=== PATIENT | female | born 1950 | race Caucasian/White ===

== ENCOUNTER 2019-03-29 11:52 | Outpatient (CLI) | payer MEDICARE, SELFPAY ==
--- NOTE | ~2019-03-29 | XR_ITS ---
XR foot LT standing 2V 03/29/2019 12:58 Indication: Left foot pain Procedure: 2 views Comparison: No prior studies for comparison. Findings: There are degenerative changes of the first MTP and IP joints. There is a bone island at th e tuft of the first distal phalanx. Lisfranc joint intact. No acute fracture or traumatic malalignmen t. No focal soft tissue abnormality. No radiopaque foreign bodies. Impression: 1: Mild polyarticular osteoarthritis. Reviewed, dictated and finalized at location A. PING MACHINE TENDER Impression: 1: Mild polyarticular osteoarthritis.
--- NOTE | ~2019-03-29 | XR_ITS ---
XR lumbar spine min 4V 03/29/2019 12:58 Indication: Back pain Procedure: 5 views of the lumbar spine Comparison: No prior studies for comparison. Findings: There is dextroscoliosis centered at L3. There is significant disc narrowing and endplate d egenerative change at all lumbar levels. Sacral foramen are symmetric. No acute fracture or traumatic malalignment. No evidence for spondylolisthesis. Impression: 1: Severe lumbar spondylosis with dextroscoliosis. Reviewed, dictated and finalized at location A. OSOFT DEVELOPER Impression: 1: Severe lumbar spondylosis with dextroscoliosis.
--- NOTE | ~2019-03-29 | XR_ITS ---
XR sacroiliac joints min 3V 03/29/2019 12:58 Indication: Sacroiliac joint pain. Procedure: 3 views of the sacroiliac joints Comparison: 02/25/2010 Findings: There is bilateral symmetric sclerosis of the iliac aspect of both sacroiliac joints. No ev idence for erosive change or ankylosis. Sacral foramen are symmetric. Visualized pelvic structures ar e unremarkable. Impression: 1: Mild-moderate bilateral symmetric degenerative change of the sacroiliac joints. Reviewed, dictated and finalized at location A. LTY MAKER Impression: 1: Mild-moderate bilateral symmetric degenerative change of the sacroiliac join ts.
--- NOTE | ~2019-03-29 | XR_ITS ---
XR foot RT standing 2V 03/29/2019 12:58 Indication: Right foot pain Procedure: 2 views right foot Comparison: No prior studies for comparison. Findings: There is internal fixation of the right first MTP joint with dorsal side plate and screws. The side plate is fractured overlying the MTP joint. There is a fractured screw obliquely oriented th rough the MTP joint. There is severe osteoarthritis of the first MTP joint. Lisfranc joint intact. No acute fracture or traumatic malalignment. Impression: 1: Status post internal fixation of the right first MTP joint with fractured sideplate and screw. 2: Severe osteoarthritis of the first MTP joint. Reviewed, dictated and finalized at location A. E PAVER Impression: 1: Status post internal fixation of the right first MTP joint with fractured si deplate and screw. 2: Severe osteoarthritis of the first MTP joint.
[2019-03-29 14:22] LABS: Uric Acid 4.2 mg/dL (2.5-7.5)
[2019-03-31 04:54] LABS: Angiotensin Converting Enzyme 22 U/L (9-67)
[2019-03-31 12:48] LABS: HLA B27 Negative (Negative)
[2019-03-31 21:32] LABS: Anti Cyclic Citrullinated Pept <16 Units (<20)
== END 2019-03-29 11:53 | disposition home or self-care (01) ==
PROVIDERS: PCP Family Medicine; Visit Provider Internal Medicine
DX: M25.9 Joint disorder, unspecified (principal); M19.071 Primary osteoarthritis, right ankle and foot; M19.072 Primary osteoarthritis, left ankle and foot; M47.898 Other spondylosis, sacral and sacrococcygeal region; M47.816 Spondylosis without myelopathy or radiculopathy, lumbar region; M41.86 Other forms of scoliosis, lumbar region; Z98.890 Other specified postprocedural states
CPT/HCPCS: 36415; 72110; 72202; 73620; 82164; 84550; 86200; 86812

== ENCOUNTER → 2019-10-07 12:29 | Outpatient (CLI) | payer MEDICARE, SELFPAY ==
--- NOTE | ~2019-10-07 | MM_ITS ---
EXAMINATION: MM screening [facility] BI w louise HISTORY: Screening mammogram, family history of breast cancer in her sister. TECHNIQUE: Craniocaudal and mediolateral oblique 3-D tomosynthesis images were obtained and synthetic 2-D images were generated. CAD analysis was submitted and interpreted. COMPARISON: 07/16/2018, 06/29/1917, 06/14/2016, 06/02/2015 BREAST PARENCHYMAL COMPOSITION: There are scattered areas of fibroglandular density. FINDINGS: There are stable grouped calcifications in association with a focal asymmetry in the upper outer quadrant of the left breast. Stable architectural distortion is seen in both breasts related to prior excisional biopsy. There is no evidence of suspicious mass, calcification, or architectural di stortion to suggest malignancy in either breast. There has been no suspicious interval change. IMPRESSION: 1. No mammographic evidence of malignancy. 2. Recommend routine screening mammography in one year. BI-RADS Category 2: Benign finding(s). Reviewed, dictated and finalized at location A.
== END ==
PROVIDERS: PCP Family Medicine; Visit Provider Nurse Practitioner
DX: Z12.31 Encounter for screening mammogram for malignant neoplasm of breast (principal)
CPT/HCPCS: 77063; 77067

== ENCOUNTER 2020-06-28 13:42 | Outpatient (CLI) | payer MEDICARE, SELFPAY ==
[2020-06-28 16:03] LABS: Thyroid Stimulating Hormone 0.609 uIU/mL (0.465-4.680); Total Triiodothyronine (T3) 1.79 NG/ML (0.97-1.69)
[2020-06-28 16:43] LABS: Free T4 Free Thyroxine 1.47 ng/mL (0.78-2.19)
--- NOTE | 2020-07-01 12:26 | WPDPFTINT ---
PFT Procedure Performed PFT Procedure Performed Spirometry with Pre/Post Bronchodilator Plethysmography (Lung Vol) Diffusing Cap (DLCO) Flow Vol Loop PFT Interpretation This PFT met all criteria for ATS standards and reproducibility FEV/FVC post bronchodilator 65% FEV1 80% FVC 95% TLC 105% RV 125% RV/TLC 51% DLCO 89% when adjusted for alveolar volume but not adjusted for hemoglobin Flow volume loops showed significant expiratory coving Impression: mild to moderate airflow obstruction with air trapping. This pattern may suggest either COPD or asthma. Clinical correlation is advised.
== END 2020-06-28 13:43 | disposition home or self-care (01) ==
PROVIDERS: PCP Family Medicine; Referring Provider Internal Medicine Endocrinology, Diabetes & Metabolism; Visit Provider Family Medicine
DX: E05.90 Thyrotoxicosis, unspecified without thyrotoxic crisis or storm (principal); J45.909 Unspecified asthma, uncomplicated
CPT/HCPCS: 36415; 84439; 84443; 84480; 94060; 94726; 94729

== ENCOUNTER 2020-07-18 05:52 | Inpatient (IN) | payer MEDICARE, SELFPAY ==
[2020-07-18] VITALS (26 sets, daily range): BP systolic 111–150; BP diastolic 52–87; PULSE 52–80; RESP 14–20; TEMP 35.8–36.6; O2SAT 95–100; BMI 32.8
--- NOTE | 2020-07-18 | ECHO_ITS ---
Patient Info Name: Alee Carcamo Age: 70 years : 1950 Gender: Female Ht: 63 in Wt: 189 lbs BSA: 1.99 m2 HR: 81 bpm Heart Rhythm: Sinus Rhythm Exam Date: 07/18/2020 11:40 AM Exam Location: [facility] Patient Status: Outpatient Admit Date: 07/18/2020 Staff Ordering Physician: Monico Gaytan DO Studio Associate: BLAS Attending Provider: Leila Gutierrez MD Exam Type: CA echo doppler color flow Study Info Indications R07.89 - Other chest pain Complete two-dimensional, color flow and Doppler transthoracic echocardiogram is performed. Summary 1. Complete two-dimensional, color flow and Doppler transthoracic echocardiogram is performed. 2. Left ventricular chamber dimension is normal. 3. Left ventricular systolic function is normal, estimated at 60-65%. 4. The left ventricular diastolic function is grade I diastolic dysfunction. 5. E/e' 11 is mildly elevated. 6. Left atrial chamber dimension is mildly enlarged. 7. The mitral valve has mildly calcified annulus. 8. No pulmonary hypertension, estimated pulmonary arterial systolic pressure is 20 mmHg. Left Ventricle E/e' 11 is mildly elevated. Left ventricular chamber dimension is normal. Left ventricular systolic function is normal, estimated at 60-65%. The left ventricular diastolic function is grade I diastolic dysfunction. Right Ventricle Right ventricular chamber dimension is normal. Right ventricular systolic function is normal. Left Atria Left atrial chamber dimension is mildly enlarged. Right Atria Right atrial chamber dimension is normal. Aortic Valve The aortic valve is trileaflet. There is no aortic valve stenosis. There is no aortic valve regurgitation. Pulmonic Valve There is no pulmonic regurgitation. Mitral Valve The mitral valve has mildly calcified annulus. There is no mitral valve stenosis. There is no mitral valve regurgitation. Tricuspid Valve There is no tricuspid valve regurgitation. No pulmonary hypertension, estimated pulmonary arterial systolic pressure is 20 mmHg. Pericardium/Pleural There is no pericardial effusion. Inferior Vena Cava Normal inferior vena cava with >50% collapse upon inspiration consistent with normal right atrial pressure, 5 mmHg. Aorta The aortic root size at the sinus of Valsalva is normal. Left Ventricular Outflow Tract Name Value Normal LVOT 2D LVOT Diameter 2.0 cm LVOT Doppler LVOT Peak Gradient 6 mmHg LVOT Mean Gradient 3 mmHg LVOT VTI 32 cm LVOT VTI/AV VTI Ratio 0.7 LVOT Stroke Volume 97 ml LVOT CO 15.7 l/min LVOT CI 7.9 l/min/m2 Pulmonic Valve Name Value Normal PV Doppler PV Peak Gradient
--- NOTE | ~2020-07-18 | NM_ITS ---
EXAMINATION: NM isaura stress w perfusion DATE: 07/20/2020 13:56 INDICATION: Chest pain. TECHNIQUE: Rest images were obtained following intravenous administration of 9.3 mCi Tc99m tetrofosmi n (Myoview). The patient was infused intravenously with Lexiscan (regadenoson). Then, 30.1 mCi Tc99m tetrofosmin (Myoview) was administered intravenously, and stress images were obtained. Data was recon structed into short axis and horizontal and vertical long axis SPECT images. Gated SPECT images were also obtained. COMPARISON: Chest CT 07/19/2020 FINDINGS: There is a small, mild, fixed perfusion defect involving mid inferior and mid inferoseptal segments of left ventricle, consistent with infarct. No reversible component to suggest ischemia. Th ere is no segmental wall motion abnormality. Left ventricular ejection fraction measures >70%. IMPRESSION: 1. Small area of mild infarct involving mid inferior and mid inferoseptal segments of left ventricle. 2. Normal left ventricular ejection fraction measuring >70%. Reviewed, dictated and finalized at location A. IMPRESSION: 1. Small area of mild infarct involving mid inferior and mid inferoseptal segme nts of left ventricle. 2. Normal left ventricular ejection fraction measuring >70%.
--- NOTE | ~2020-07-18 | XR_ITS ---
EXAMINATION: XR chest 2V EXAM DATE: 07/18/2020 06:19 INDICATION: Left-sided chest pain for 2 days. TECHNIQUE: Frontal and lateral projections of the chest obtained and reviewed. Comparison is made to prior examination from 10/21/2018. FINDINGS: The lungs are clear. There are no pleural effusions. The cardiomediastinal silhouette is within normal limits. There is no pneumothorax suspected. The bones and soft tissues are unremarkab le. There is no significant interval change. IMPRESSION: No acute cardiopulmonary findings. Reviewed, dictated and finalized at location A.
--- NOTE | ~2020-07-18 | CT_ITS ---
EXAMINATION: CTA chest PE protocol DATE: 07/19/2020 09:28 INDICATION: Left chest pain. TECHNIQUE: Computed tomography angiography (CTA) of the chest was performed with 100 mL Omnipaque-350 intravenous contrast timed to evaluate the pulmonary arteries. Coronal maximum intensity projection 3D-reconstructions were created by the technologist. Automated exposure control and iterative reconst ruction technique were employed. The dose-length product was 506.29 mGy-cm. COMPARISON: CT abdomen and pelvis 01/20/2012 FINDINGS: The lungs demonstrate mild atelectasis on the right. No pleural effusion. The heart size is normal. No pericardial effusion. There is no pulmonary embolus. There is moderate thoracic spondylos is. IMPRESSION: 1. No pulmonary embolus. Reviewed, dictated and finalized at location A. IMPRESSION: 1. No pulmonary embolus.
--- NOTE | ~2020-07-18 | XR_ITS ---
EXAMINATION: XR ribs LT 2V DATE: 07/19/2020 15:47 INDICATION: Left rib pain. TECHNIQUE: 3 views of left ribs were obtained. COMPARISON: Chest 2 views 07/18/2020 FINDINGS: There is no left-sided pneumonia, pleural effusion, or pneumothorax. The heart size is norm al. There is a surgical clip in left breast. IMPRESSION: 1. No rib fracture. Reviewed, dictated and finalized at location A. IMPRESSION: 1. No rib fracture.
--- NOTE | ~2020-07-18 | US_ITS ---
US abdomen limited INDICATION: Epigastric pain PROCEDURE: Realtime right upper abdominal ultrasound. COMPARISON: No prior studies for comparison. FINDINGS: The pancreas is normal without focal mass or pancreatic ductal dilation. Liver echotexture is normal without focal mass or intrahepatic biliary dilatation. There is normal directional flow i n the portal vein. The gallbladder is normal without stones, gallbladder wall thickening or pericholecystic fluid. Comm on bile duct measures 4.5 mm. No sonographic Reddy's sign. IMPRESSION: 1: Normal limited abdominal ultrasound. Reviewed, dictated and finalized at location B.
--- NOTE | 2020-07-18 05:53 | ECG_ITS ---
Measurements Intervals [facility] Rate: 70 P: 63 NV: 179 QRS: -71 QRSD: 136 T: 35 QT: 429 QTc: 466 Interpretive Statements SINUS RHYTHM LEFT AXIS DEVIATION RIGHT BUNDLE BRANCH BLOCK BASELINE ARTIFACT- III, AVF, V1-V6 ABNORMAL ECG Electronically Signed On 07-18-2020 7:12:38 CDT by Monico Gaytan D.O.
[2020-07-18 06:14] LABS: Basophils Percent Auto 0.4 % (0.2-1.2); Eosinophils Absolute Auto 0.1 K/mm3 (0-0.3); Eosinophils Percent Auto 0.9 % (0-4.4); Hematocrit 40.3 % (37.0-47.0); Hemoglobin 13.1 g/dL (12.0-15.0); Immature Granulocyte Absolute 0.02 K/mm3 (0.00-0.031); Immature Granulocyte Percent A 0.3 % (0-0.5); Lymphocytes Percent Auto 20.4 % (18.3-44.2); Mean Corpuscular HGB Conc 32.5 g/dl (32-36); Mean Corpuscular Hemoglobin 30.5 pg (26-34); Mean Corpuscular Volume 93.7 fl (80-100); Mean Platelet Volume 9.5 fl (7.4-10.4); Monocytes Absolute Auto 0.8 K/mm3 (0.1-0.6); Monocytes Percent Auto 10.4 % (2.6-8.5); Neutrophils Absolute Auto 5.3 K/mm3 (1.3-6.7); Neutrophils Percent Auto 67.6 % (45.5-73.1); Platelet Count Result 320 k/mm3 (150-375); Red Cell Distribution Width 14.2 % (11.5-14.5); White Blood Count 7.9 K/mm3 (4.5-10.0)
[2020-07-18] MEDS: NITROGLYCERIN SL 0.4 MG TABLET SUBLINGUAL (06:25)
[2020-07-18] MEDS: SODIUM CHLORIDE 0.9% IV 1,000 ML 999 ML IV CONT (06:25)
--- NOTE | 2020-07-18 06:25 | ED.CHESTPAIN ---
HPI - Chest Pain General Chief Complaint: Chest Pain <Aaron Boyce MD - Last Filed: 07/18/20 06:34> Stated Complaint: chest pain x 2 days <Aaron Boyce MD - Last Filed: 07/18/20 06:34> Time Seen by Provider: 07/18/20 06:02 <Aaron Boyce MD - Last Filed: 07/18/20 06:34> Source: patient and family <Aaron Boyce MD - Last Filed: 07/18/20 06:34> Mode of arrival: ambulatory <Aaron Boyce MD - Last Filed: 07/18/20 06:34> Limitations: no limitations <Aaron Boyce MD - Last Filed: 07/18/20 06:34> History of Present Illness HPI narrative: 70-year-old with a history of hypertension, hyperlipidemia, hypothyroidism, Takotsubo cardiomyopathy here with complaints of left-sided chest pain for past 2 days. Patient states that pain is below her left breast and it is constant in nature. Pain gets worse with ambulation. She states that she has taken Tylenol yesterday <Aaron Boyce MD - Last Filed: 07/18/20 06:34> MD complaint: chest pain <Aaron Boyce MD - Last Filed: 07/18/20 06:34> Pertinent past history: other (Takotsubo cardiomyopathy) <Aaron Boyce MD - Last Filed: 07/18/20 06:34> Onset (ago): day(s) (2) <Aaron Boyce MD - Last Filed: 07/18/20 06:34> Timing of current episode: constant <Aaron Boyce MD - Last Filed: 07/18/20 06:34> Onset: during rest <Aaron Boyce MD - Last Filed: 07/18/20 06:34> Pain location: left chest <Aaron Boyce MD - Last Filed: 07/18/20 06:34> Pain radiation: none <MD Raya Luque Last Filed: 07/18/20 06:34> Quality: aching and heaviness <Aaron Boyce MD - Last Filed: 06/08/21 06:34> Relieving factors: nothing <MD Raya Luque Last Filed: 07/18/20 06:34> Exacerbating factors: exertion <MD Raya Luque Last Filed: 07/18/20 06:34> Associated symptoms: nausea <MD Raya Luque Last Filed: 07/18/20 06:34> Risk Factors Coronary artery disease risk factors: hyperlipidemia and hypertension <MD Raya Luque Last Filed: 07/18/20 06:34> Related Data Home Medications: Home Medications Medication Instructions Recorded Confirmed lactobacillus combination no.4 15 15,000 mmu cells PO DAILY 01/27/19 06/07/20 billion cell capsule cholecalciferol (vitamin D3) 50 3,000 unit PO DAILY tablet 03/08/20 06/07/20 mcg (2,000 unit) chewable tablet <MD Raya Luque Last Filed: 07/18/20 06:34> Allergies/Adverse Reactions: Allergies Allergy/AdvReac Type Severity Reaction Status Date / Time codeine Allergy Unknown Itching Verified 07/18/20 05:52 Sulfa (Sulfonamide Allergy Unknown Itching Verified 07/18/20 05:52 Antibiotics) <MD Raya Luque Last Filed: 07/18/20 06:34> Review of Systems Review of Systems: All systems reviewed & are unremarkable except as noted in HPI and below <MD Raya Luque Last Filed: 07/18/20 06:34> Constitutional: Constitutional: Reports no additional constitutional complaints <MD Raya Luque Last Filed: 07/18/20 06:34> Eyes: Eyes: Reports no additional eye complaints <MD Raya Luque Last Filed: 07/18/20 06:34> ENT: Reports system reviewed and no additional complaints, except as documented <MD Raya Luque Last Filed: 07/18/20 06:34> Cardiovascular: Cardiovascular: Reports as per HPI <MD Raya Luque Last Filed: 07/18/20 06:34> Respiratory: Respiratory: Reports no additional respiratory complaints <MD Raya Luque Last Filed: 07/18/20 06:34> Gastrointestinal: Gastrointestinal: Reports no additional gastrointestinal complaints <MD Raya Luque Last Filed: 07/18/20 06:34> Musculoskeletal: Musculoskeletal: Reports no additional musculoskeletal complaints <Aaron Boyce MD - Last Filed: 07/18/20 06:34> Neurologic: Reports system reviewed and no additional complaints, except as documented <Aaron Boyce MD - Last Filed: 07/18/20 06:34
[2020-07-18] MEDS: ASPIRIN 81 MG CHEWABLE TABLET 324 MG PO (06:26)
[2020-07-18 06:27] LABS: Prothrombin Time 13.6 Seconds (11.1-14.7)
[2020-07-18 06:52] LABS: Anion Gap 13 mmol/L (8-16); Blood Urea Nitrogen 14 mg/dL (7-17); Calcium 9.9 mg/dL (8.4-10.2); Carbon Dioxide 26 mmol/L (22-30); Chloride 102 mmol/L (98-107); Estimated CRCL calculation 60 ml/min; Estimated Glomerular Filt Rate > 60; Glucose 116 mg/dL (65-105); Potassium 3.6 mmol/L (3.4-5.0); Sodium 141 mmol/L (137-145)
[2020-07-18] MEDS: ONDANSETRON INJ 4 MG/2 ML VIAL IV PUSH (06:56)
[2020-07-18] MEDS: MORPHINE SULFATE (*CRX) 4 MG/ML INJ IV PUSH ×2 (06:56→15:04)
[2020-07-18 07:08] LABS: Troponin I 0.056 ng/mL (0.000-0.034)
--- NOTE | 2020-07-18 09:03 | PM.CNCAR ---
Assessment and Plan Assessment and plan (1) Chest pain: Qualifiers: Chest pain type: chest pain due to myocardial ischemia Ischemic chest pain type: unspecified angina pectoris type Qualified Code(s): I25.9 - Chronic ischemic heart disease, unspecified Code(s): R07.9 - Chest pain, unspecified Status: Acute Assessment and Plan: Atypical. Given essentially normal LHC in 2019 doubt this is ACS. Could be related to musculoskeletal or radiculopathy from her cervicals. Obtain echo. Follow serial troponins. (2) Essential hypertension: Code(s): I10 - Essential (primary) hypertension Status: Acute Assessment and Plan: Stable. (3) Dyslipidemia: Code(s): E78.5 - Hyperlipidemia, unspecified Status: Acute Assessment and Plan: On Statin. (4) Takotsubo cardiomyopathy: Code(s): I51.81 - Takotsubo syndrome Status: Acute History of Present Illness History of Present Illness Consult date/time: 07/18/20 09:03 Reason for consult: Chest pain. Patient is a 70 yr old woman who is my regular cardiology patient presents to ED with chest pain. She has a history of Takotsubo cardiomyopathy in Oct 2018, dyslipidemia, hypertension, asthma. States that she had queasiness and vague abdominal pain in last several days. She went to see her PCP, Dr. Chavarria and was scheduled to have abdominal ultrasound for it. She also sees a solar energy system installer and was started on Methotrexate for psoriatic arthritis, but she did not take it this week due to concern for abdominal discomfort. Then for last 36 hours she has constant 10/10 sharp pain in left chest under her breast radiating to her back. She did get Morphine in ED which took the edge off and she only notices the pain now. EKG is OK. CXR is OK. Troponin is .056 first set. Reports she does not walk much but thinks she can walk a few blocks without any problems. Denies chest pain, sob, edema, palpitations, orthopnea. Cardiovascular Procedures On Site Soil Evaluator:: Cath (Dr. Guerrero: Luminal irregularities only of RCA. EF 35%.) - 10/22/2018 Echo/MUGA:: 01/11/19 Echo: EF 60-65%, mild LVH, trace MR/TR/PI. Echo (EF 35-40%, mod LVE, basal to mid LV segments with normal contractility, while mid to apical and entire apex are severe hypokinetic to akinetic s/o Takotsubo cardiomyopathy, grade I diastolic dysfunction (E/E' 16), mild LAE, mild AI/MR/TR.) - 10/21/2018 Electrophysiology:: EKG (Sinus rhythm, RBBB, LAFB.) - 10/21/2018 Reason For Visit: chest pain x 2 days Review of Systems Review of Systems: All systems reviewed & are unremarkable except as noted in HPI and below Constitutional: Constitutional: Reports as per HPI, Denies chills and Denies fever(s) Cardiovascular: Cardiovascular: Reports as per HPI, Reports chest pain, Denies leg edema and Denies lightheadedness Respiratory: Respiratory: Reports as per HPI and Denies dyspnea Gastrointestinal: Gastrointestinal: Reports as per HPI and Reports abdominal pain Genitourinary: Genitourinary: Reports as per HPI and Denies dysuria Musculoskeletal: Musculoskeletal: Reports as per HPI, Reports back pain, Reports arthralgias and Reports neck pain Neurologic: Reports as per HPI, Denies dizziness and Denies syncope [facility] Past Medical History Medical History Arthritis Asthma Cataract fragments in both eyes following surgery Colitis Dyslipidemia Essential hypertension Inflammatory arthritis Migraine Mild intermittent asthma with (acute) exacerbation Neck pain Peripheral polyneuropathy Primary osteoarthritis, right shoulder (~2014) Psoriasis (~1999) Takotsubo cardiomyopathy Thyroid disease Vasovagal syncope Surgical History Surgical History H/O: hysterectomy History of elbow surgery History of mandibular surgery History of toe surgery History of tonsillectomy Family History Family History (Re
[2020-07-18 09:36] LABS: Troponin I 0.081 ng/mL (0.000-0.034)
--- NOTE | 2020-07-18 11:15 | PC.NURSE ---
This patient, Alee Carcamo, was admitted to IMU Room 204-01. Patient/family oriented to hospital policies and general routines including ID bracelet, bed and alarms, visiting hours, pain management, procedures, bathroom and other care routines, personal items, smoking policy, room service/diet, and visiting hours. Information on how to activate the Rapid Response Team has been discussed. Patient/Family are encouraged to report perceived risks to care and to ask questions if they do not understand what they are told or what they should do.
[2020-07-18] MEDS: HYDROcodone/acetaminophen (*CRX) 5-325 MG TABLET 1 TAB PO ×2 (11:27→20:16)
[2020-07-18 12:26] LABS: Troponin I 0.069 ng/mL (0.000-0.034)
--- NOTE | 2020-07-18 13:34 | PM.IMHP ---
H&P: HPI History of Present Illness Date/Time: 07/18/20 13:34 this is a 70-year-old female patient who has a history of Takotsubo with her last echo being in 2019. The patient stated that she has had this epigastric discomfort for about 3 days. She did notify her primary care doctor. She stated that her primary care doctor was going to order her an ultrasound. The patient had a cardiac catheterization in 2019 that did not require any intervention at the time. The patient does have chronic pain to her back but said this is different than her chronic back pain. She also has some acid reflux but stopped taking her acid reflux medication. Patient also has rheumatoid arthritis and recently stopped taking that medication as well. The patient also has Graves disease and stop taking her medicine for that as well. So she has had several medications that she has recently stopped taking. The patient came in today because of this epigastric discomfort she said it starts in the middle of her chest and radiates all the way to her back. She said she has taken her pain medications including Tylenol and Ultram and it did not help her at all. She did not take any of her acid reflux medicine because she did think that was acid reflux. And epigastric and radiates to her back. Right bundle-branch block baseline artifact. Baseline troponin today 0.056 and the 3 hours troponin was 0.069. Chest x-ray was read as Cardiopulmonary findings. For an echo was taken but the results are pending. The patient is being admitted to observation status on the date of service of 07/18/2020. Chief Complaint: Chest pain Review of Systems Review of Systems: All systems reviewed & are unremarkable except as noted in HPI and below Constitutional: Constitutional: Reports as per HPI and Reports no additional constitutional complaints Eyes: Eyes: Reports as per HPI and Reports no additional eye complaints ENT: Reports system reviewed and no additional complaints, except as documented and Reports Normal hearing present Cardiovascular: Cardiovascular: Reports no additional cardiovascular complaints Respiratory: Respiratory: Reports no additional respiratory complaints and Reports no additional respiratory complaints Gastrointestinal: Gastrointestinal: Reports as per HPI and Reports no additional gastrointestinal complaints Musculoskeletal: Musculoskeletal: Reports no additional musculoskeletal complaints Integumentary/Breasts: Skin/Breast: Reports system reviewed and no additional complaints, except as docu and Reports as per HPI Neurologic: Reports system reviewed and no additional complaints, except as documented, Reports as per HPI and Reports Normal hearing present Psychiatric: Psychiatric: Reports no additional psychiatric complaints and Reports as per HPI Endocrine: Endocrine: Reports no additional endocrine complaints Hematologic/Lymphatic: Hematologic/Lymphatic: Reports no additional hematologic/lymphatic complaints Allergic/Immunologic: Allergic/Immunologic: Reports no additional allergic/immunologic complaints [facility] Past Medical History Medical History (Updated 07/18/20 @ 13:44 by Ewelina Trent NP) Arthritis Asthma Colitis Dyslipidemia Encounter for medication management Essential hypertension Inflammatory arthritis Methotrexate, long chain beamer, current use Migraine Mild intermittent asthma with (acute) exacerbation Neck pain Neuropathy Neck. She gets injections in her neck. Peripheral polyneuropathy Pre-op evaluation Primary osteoarthritis, right shoulder (~2014) Psoriasis (~1999) Rheumatoid arthritis Takotsubo cardiomyopathy Thyroid disease Vasovagal syncope Surgical History Surgical History (Updated 07/18/20 @ 13:42 by Ewelina Trent NP) Cataract extraction status H/O cardiac catheterization H/O shoulder surgery On the right H/O: hysterectomy History of elbow surgery History of mandibular surgery History of toe surgery History of tonsi
[2020-07-18] MEDS: CHOLECALCIFEROL 1,000 UNITS TABLET 3000 UNITS PO (15:00)
[2020-07-18] MEDS: CALCIUM CARBONATE (OSCAL) 500 MG TABLET 1000 MG PO (15:01)
[2020-07-18] MEDS: lisinopriL 2.5 MG TABLET PO (15:01)
[2020-07-18] MEDS: PANTOPRAZOLE 40 MG TABLET PO (15:02)
[2020-07-18] MEDS: METOPROLOL SUCCINATE EXT REL 25 MG TABCR PO (15:02)
[2020-07-18] MEDS: SIMVASTATIN 20 MG TABLET 40 MG PO (15:02)
[2020-07-18] MEDS: GABAPENTIN 300 MG CAPSULE PO (16:13)
[2020-07-18] MEDS: LIDOCAINE HCL 2% VISC SOLN 15 ML UDC PO (22:23)
[2020-07-18] MEDS: MAG HYDROX/AL HYDROX/SIMETH 30 ML UDC PO (22:23)
[2020-07-18] MEDS: BELLADONNA ALK/PHENOB ELIXIR 10 ML PO (22:24)
[2020-07-19] VITALS (14 sets, daily range): BP systolic 89–155; BP diastolic 44–79; PULSE 48–65; RESP 16–20; TEMP 36.4–36.9; O2SAT 91–100
--- NOTE | 2020-07-19 01:00 | PCRCNOTE ---
Window of time for administration has passed. See next scheduled administration.
[2020-07-19] MEDS: KETOROLAC 15 MG/ML VIAL (*BKC) IV PUSH (04:18)
[2020-07-19 05:05] LABS: Basophils Absolute Auto 0.1 K/mm3 (0.0-0.1); Basophils Percent Auto 0.8 % (0.2-1.2); Eosinophils Absolute Auto 0.1 K/mm3 (0-0.3); Eosinophils Percent Auto 1.9 % (0-4.4); Hematocrit 38.1 % (37.0-47.0); Hemoglobin 12.4 g/dL (12.0-15.0); Immature Granulocyte Absolute 0.01 K/mm3 (0.00-0.031); Immature Granulocyte Percent A 0.2 % (0-0.5); Lymphocytes Absolute Auto 2.29 K/mm3 (0.9-3.2); Lymphocytes Percent Auto 35.7 % (18.3-44.2); Mean Corpuscular HGB Conc 32.5 g/dl (32-36); Mean Corpuscular Hemoglobin 30.8 pg (26-34); Mean Corpuscular Volume 94.5 fl (80-100); Mean Platelet Volume 9.6 fl (7.4-10.4); Monocytes Percent Auto 14.8 % (2.6-8.5); Neutrophils Percent Auto 46.6 % (45.5-73.1); Platelet Count Result 302 k/mm3 (150-375); Red Blood Count 4.03 M/mm3 (4.2-5.4); Red Cell Distribution Width 14.4 % (11.5-14.5); White Blood Count 6.4 K/mm3 (4.5-10.0)
[2020-07-19 05:12] LABS: Alanine Aminotransferase 19 U/L (4-35); Albumin Level 4.3 g/dL (3.5-5.1); Alkaline Phosphatase 64 U/L (38-126); Anion Gap 11 mmol/L (8-16); Aspartate Amino Transferase 26 U/L (14-36); Bilirubin,Total 0.6 mg/dL (0.2-1.3); Blood Urea Nitrogen 13 mg/dL (7-17); Calcium 9.9 mg/dL (8.4-10.2); Carbon Dioxide 25 mmol/L (22-30); Chloride 105 mmol/L (98-107); Estimated CRCL calculation 59 ml/min; Estimated Glomerular Filt Rate > 60; Glucose 107 mg/dL (65-105); Lipase 229 U/L (23-300); Magnesium 2.2 mg/dL (1.6-2.3); Potassium 3.9 mmol/L (3.4-5.0); Sodium 141 mmol/L (137-145)
--- NOTE | 2020-07-19 07:42 | PM.PNCARD ---
Progress Note: A&P Assessment and Plan (1) Chest pain: Qualifiers: Chest pain type: chest pain due to myocardial ischemia Ischemic chest pain type: unspecified angina pectoris type Qualified Code(s): I25.9 - Chronic ischemic heart disease, unspecified Code(s): R07.9 - Chest pain, unspecified Status: Acute Assessment and Plan: Atypical. Given essentially normal LHC in 2019 doubt this is ACS. Could be related to musculoskeletal as it is reproducible on edge of left rib cage. Echo is normal with no wall motion abnormalities. Troponin peaked at .08. Obtain CT chest r/o pulm embolism. Abdominal u/s has been ordered. (2) Essential hypertension: Code(s): I10 - Essential (primary) hypertension Status: Acute Assessment and Plan: Stable. (3) Dyslipidemia: Code(s): E78.5 - Hyperlipidemia, unspecified Status: Acute Assessment and Plan: On Statin. (4) Takotsubo cardiomyopathy: Code(s): I51.81 - Takotsubo syndrome Status: Acute Assessment and Plan: History of it. Subjective Date/time seen: 07/19/20 07:42 Reports constant sharp chest pain localized to left edge of ribcage that is worse with palpation. Denies sob. Exam Const: General: cooperative, healthy appearing and comfortable Resp: Auscultation: clear to auscultation bilaterally, no crackles, no rales, no rhonchi and no wheezes Cardio: Jugular venous distension: no JVD Rate: regular rate Rhythm: regular rhythm Heart sounds: no murmurs Peripheral pulses: dorsalis pedis present GI: GI Palp: No abdominal tenderness and Yes Soft to palpation Neuro: General: oriented to person, oriented to place and oriented to time Extrem: Right lower extremity: no edema Left lower extremity: no edema Objective Data Vital Signs Vital Signs: Vital Signs - 24 hr 07/18/20 07:49 07/18/20 08:01 07/18/20 08:08 Temperature Pulse Rate 62 60 58 L Respiratory Rate 16 17 17 Blood Pressure 123/52 L Pulse Oximetry 96 95 95 07/18/20 08:15 07/18/20 08:45 07/18/20 08:47 Temperature Pulse Rate 63 62 63 Respiratory Rate 18 16 16 Blood Pressure 133/68 Pulse Oximetry 100 96 96 07/18/20 11:06 07/18/20 11:25 07/18/20 12:00 Temperature 98 F Pulse Rate 64 76 60 Respiratory Rate 20 14 Blood Pressure 132/72 136/79 Pulse Oximetry 97 97 07/18/20 12:23 07/18/20 14:00 07/18/20 15:02 Temperature 96.5 F L Pulse Rate 61 74 68 Respiratory Rate 16 Blood Pressure 125/73 Pulse Oximetry 99 07/18/20 16:00 07/18/20 16:12 07/18/20 18:00 Temperature 96.6 F L Pulse Rate 63 63 80 Respiratory Rate 16 Blood Pressure 126/54 L Pulse Oximetry 96 07/18/20 20:00 07/18/20 22:00 07/18/20 23:43 Temperature 97.6 F 97.8 F Pulse Rate 57 L 52 L 57 L Respiratory Rate 20 20 Blood Pressure 140/69 111/52 L Pulse Oximetry 99 99 07/19/20 00:00 07/19/20 02:00 07/19/20 04:00 Temperature 97.6 F Pulse Rate 53 L 53 L 62 Respiratory Rate 20 20 Blood Pressure 155/79 H Pulse Oximetry 99 97 07/19/20 06:00 Temperature Pulse Rate 51 L Respiratory Rate Blood Pressure Pulse Oximetry Intake/Output Intake/Output: Intake & Output 07/16/20 07/17/20 07/18/20 07/19/20 23:59 23:59 23:59 23:59 Intake Total 1600 300 Output Total 500 Balance 1600 -200 Meds/Results Medications: Active Medications Generic Name Dose Route Start Last Admin Trade Name Freq PRN Reason Stop Dose Admin Acetaminophen 650 mg 07/18/20 07:39 Acetaminophen 325 Mg Tablet PO Q4H PRN Mild Pain (1-3) or Fever Hydrocodone Bitart/Acetaminophen 1 tab 07/18/20 07:39 07/18/20 20:16 Hydrocodone/Acetaminophen (*Crx) 5-325 Mg Tablet PO 1 tab Q4H PRN Administration Pain Rated 4-6 Albuterol 1 puff 07/18/20 13:48 Albuterol Sulfate (*Sp) Aerosol 1 Puff INHALATION Q4H PRN shortness of breath or wheezing Calcium Carbonate 1,000 mg 07/18/20 09:
[2020-07-19] MEDS: ONDANSETRON INJ 4 MG/2 ML VIAL IV PUSH ×4 (08:48→21:47)
[2020-07-19] MEDS: MORPHINE SULFATE (*CRX) 4 MG/ML INJ IV PUSH (08:49)
[2020-07-19] MEDS: FAMOTIDINE 20 MG TABLET PO ×2 (08:55→21:40)
[2020-07-19] MEDS: ENOXAPARIN 40 MG/0.4 ML SYRINGE SUB-Q (08:55)
[2020-07-19] MEDS: SACCHAROMYCES BOULARDII 250 MG CAPSULE PO (08:55)
[2020-07-19] MEDS: SIMVASTATIN 20 MG TABLET 40 MG PO (08:56)
[2020-07-19] MEDS: CHOLECALCIFEROL 1,000 UNITS TABLET 3000 UNITS PO (08:56)
[2020-07-19] MEDS: lisinopriL 2.5 MG TABLET PO (08:56)
[2020-07-19] MEDS: METOPROLOL SUCCINATE EXT REL 25 MG TABCR PO (08:56)
[2020-07-19] MEDS: GABAPENTIN 300 MG CAPSULE PO (08:56)
[2020-07-19] MEDS: CALCIUM CARBONATE (OSCAL) 500 MG TABLET 1000 MG PO (10:51)
--- NOTE | 2020-07-19 14:09 | PM.IMPN ---
Progress Note: A&P Assessment and Plan (1) Chest pain: Qualifiers: Chest pain type: chest pain due to myocardial ischemia Ischemic chest pain type: unspecified angina pectoris type Qualified Code(s): I25.9 - Chronic ischemic heart disease, unspecified Code(s): R07.9 - Chest pain, unspecified Status: Acute Assessment and Plan: Troponins were mildly elevated with peak at 0.081 with relatively flat trend. She complained of discomfort in the lower sternal region that has now shifted to the left epigastric region. Symptoms atypical and do not feel consistent with ACS. Echo reviewed with no wall motion abnormalities. CTA negative for PE. Apprediate cardiology consultation. No further workup required at this time Monitor clinically (2) Epigastric pain: Code(s): R10.13 - Epigastric pain Status: Acute Assessment and Plan: Patient endorses aching pain in the left epigastric region extending to left chest wall in the rib cage area. RUQ US negative. Lipase and LFTs within normal limits. One consideration is GERD symptoms. Additionally, consider musculoskeletal etiology as she reports a fall several weeks ago. Continue Pepcid bid Recommend bland diet. Out of bed and upright with meals. Obtain x-ray of left ribs Supportive care to include ice and heat Analgesics available as needed for pain (3) Graves disease: Code(s): E05.00 - Thyrotoxicosis with diffuse goiter without thyrotoxic crisis or storm Status: Inactive Assessment and Plan: Recently stopped medication. TSH is within normal limits. No further intervention. (4) Essential hypertension: Code(s): I10 - Essential (primary) hypertension Status: Acute Assessment and Plan: Blood pressures reviewed and are generally well controlled. Last BP 104/61. Continue home regimen of lisinopril and metoprolol Additional Plan She is hemodynamically stable and will be transferred from IMU to med/surg floor. Subjective Date/time seen: 07/19/20 14:09 Interval history: Date of service: 07/19/20 Alee Carcamo is a 70 year old female with a history of asthma, hypertension, rheumatoid arthritis, and migraines who is seen in follow-up for epigastric pain. Her pain is located in the left epigastric region just below her left breast. She describes it as an aching sensation with occasional burning. The pain started in her lower midsternal region. She reports a history of GERD and notes that it may feel similar. She has improvement with analgesics. At this time, her pain is rated 3/10. She denies worsening of symptoms with eating and she has been tolerating a bland diet today. She is concerned because her pain gets up to 7/10 without medication. She denies dysphagia. Denies nausea, vomiting, fever, or chills. She has been having regular bowel movements, last was 2 days ago. No diarrhea. Denies shortness of breath, cough, chest pain, palpitations, dizziness, lightheadedness. Review of Systems Review of Systems: All systems reviewed & are unremarkable except as noted in HPI and below Exam Narrative: Exam Narrative: Ms. Carcamo is a well-nourished, well-appearing 70-year-old female who is lying supine in bed. She appears comfortable and is in NARD. Neuro: awake, alert and oriented x4, speech clear, no focal neuro deficits noted HEENMT: normocephalic, atraumatic, EOMI, sclerae anicteric, moist oral mucosa, tongue midline, nares patent Neck: supple, no lymphadenopathy Respiratory: clear to auscultation bilaterally, nonlabored breathing Cardio: regular rate, regular rhythm with S1-S2 Abdomen: nondistended, normoactive bowel sounds, soft, point tenderness to palpation in left epigastric region, no rigidity or guarding Extremities: no edema, erythema, cyanosis, clubbing, or tenderness to palpation, DP pulses 2+ bilaterally Skin: no rashes or lesions, warm and dry Psych: appropriate mood and affect, j
[2020-07-19] MEDS: MORPHINE SULFATE (*CRX) 4 MG/ML INJ 1 MG IV PUSH (17:49)
[2020-07-20] VITALS (15 sets, daily range): BP systolic 82–108; BP diastolic 37–65; PULSE 55–69; RESP 16–20; TEMP 36–36.5; O2SAT 95–100
--- NOTE | 2020-07-20 | EST_ITS ---
Patient Info Name: Alee Carcamo Age: 70 years : 1950 Gender: Female Ht: 63 in Wt: 186 lbs BSA: 1.97 m2 Exam Date: 07/20/2020 11:23 AM Exam Location: [facility] Stress Patient Status: Inpatient Admit Date: 07/18/2020 Staff Ordering Physician: Monico Gaytan DO Attending Provider: Magalys Preston PA-C Exercise Technologist: Maty Momin RDCS Exercise Physician: Monico Gaytan DO Exam Type: CA stress isaura w NM Study Info Indications R07.9 - Chest pain, unspecified A regadenoson stress test was performed. Summary 1. 1. Negative lexiscan stress test for ischemic ST changes by ECG criteria. 2. 2. Transient asystole effect from lexiscan. 3. 3. Baseline hypotension. IVF given a total of 700 ml NS. 4. 4. Nuclear scan to follow and will be reported separately. Please correlate with it. Protocol: Lexiscan Stress ECG Details Stage: REST Duration (min): 0 min : 59 sec HR (bpm): 58 SBP (mmHg): 85 DBP (mmHg): 47 Stage: REST Duration (min): 4 min : 1 sec HR (bpm): 57 SBP (mmHg): 85 DBP (mmHg): 47 Stage: STAGE 1 Duration (min): 0 min : 59 sec HR (bpm): 80 SBP (mmHg): 100 DBP (mmHg): 48 Stage: RECOVERY Duration (min): 1 min : 0 sec HR (bpm): 66 SBP (mmHg): 159 DBP (mmHg): 45 Stage: RECOVERY Duration (min): 2 min : 0 sec HR (bpm): --- SBP (mmHg): 159 DBP (mmHg): 45 Stage: RECOVERY Duration (min): 3 min : 0 sec HR (bpm): 76 SBP (mmHg): 159 DBP (mmHg): 45 Stage: RECOVERY Duration (min): 4 min : 0 sec HR (bpm): 72 SBP (mmHg): 115 DBP (mmHg): 56 Stage: RECOVERY Duration (min): 5 min : 0 sec HR (bpm): 72 SBP (mmHg): 125 DBP (mmHg): 58 Stage: RECOVERY Duration (min): 6 min : 0 sec HR (bpm): 70 SBP (mmHg): 125 DBP (mmHg): 58 Stage: RECOVERY Duration (min): 7 min : 0 sec HR (bpm): 69 SBP (mmHg): 105 DBP (mmHg): 58 Stage: RECOVERY Duration (min): 8 min : 0 sec HR (bpm): 64 SBP (mmHg): 105 DBP (mmHg): 58 Stage: RECOVERY Duration (min): 9 min : 0 sec HR (bpm): 63 SBP (mmHg): 102 DBP (mmHg): 59 Stage: RECOVERY Duration (min): 10 min : 0 sec HR (bpm): 64 SBP (mmHg): 102 DBP (mmHg): 59 Stage: RECOVERY Duration (min): 11 min : 0 sec HR (bpm): 62 SBP (mmHg): 102 DBP (mmHg): 59 Stage: RECOVERY Duration (min): 12 min : 0 sec HR (bpm): 64 SBP (mmHg): 88 DBP (mmHg): 51 Stage: RECOVERY Duration (min): 13 min : 0 sec HR (bpm): 63 SBP (mmHg): 85 DBP (mmHg): 59 Stage: RECOVERY Duration (min): 14 min : 0 sec HR (bpm): 64 SBP (mmHg): 85 DBP (mmHg): 59 Stage: RECOVERY Duration (min): 15 min : 0 sec HR (bpm): 6
[2020-07-20] MEDS: SODIUM CHLORIDE 0.9% IV 250 ML 999 ML IV CONT (01:21)
--- NOTE | 2020-07-20 02:00 | PC.NURSE ---
Normal Saline 250ml bolus given per order. Repeat blood pressure 100/44 after bolus. Will transfer to room 255 per order.
--- NOTE | 2020-07-20 02:50 | PC.NURSE ---
This patient, Alee Carcamo, was transferred to [facility] on 07/20/20 at 0240. Personal belongings sent with patient. Report given to Radha OTERO. Appropriate documentation sent with patient.
--- NOTE | 2020-07-20 08:13 | PM.PNCARD ---
Progress Note: A&P Assessment and Plan (1) Chest pain: Qualifiers: Chest pain type: chest pain due to myocardial ischemia Ischemic chest pain type: unspecified angina pectoris type Qualified Code(s): I25.9 - Chronic ischemic heart disease, unspecified Code(s): R07.9 - Chest pain, unspecified Status: Acute Assessment and Plan: Atypical. Given essentially normal LHC in 2019 doubt this is ACS. Could be related to musculoskeletal as it is reproducible on edge of left rib cage. Echo is normal with no wall motion abnormalities. Troponin peaked at .08. CT chest shows no pulm embolism. Abdominal u/s was unremarkable. Obtain lexiscan myoview stress test today. If unremarkable, may d/c home from cardiology standpoint. (2) Essential hypertension: Code(s): I10 - Essential (primary) hypertension Status: Acute Assessment and Plan: Low overnight. Stop Lisinopril. (3) Dyslipidemia: Code(s): E78.5 - Hyperlipidemia, unspecified Status: Acute Assessment and Plan: On Statin. (4) Takotsubo cardiomyopathy: Code(s): I51.81 - Takotsubo syndrome Status: Acute Assessment and Plan: History of it. Subjective Date/time seen: 07/20/20 08:13 Reports sharp and numbness pain at edge of left rib cage radiating to back of ribcage is improved this morning. Only mild pain now off medication. Exam Const: General: cooperative, healthy appearing and comfortable Resp: Auscultation: clear to auscultation bilaterally, no crackles, no rales, no rhonchi and no wheezes Cardio: Jugular venous distension: no JVD Rate: regular rate Rhythm: regular rhythm Heart sounds: no murmurs Peripheral pulses: dorsalis pedis present GI: GI Palp: No abdominal tenderness and Yes Soft to palpation Neuro: General: oriented to person, oriented to place and oriented to time Extrem: Right lower extremity: no edema Left lower extremity: no edema Objective Data Vital Signs Vital Signs: Vital Signs - 24 hr 07/19/20 10:00 07/19/20 12:00 07/19/20 14:00 Temperature 98.2 F Pulse Rate 53 L 55 L 52 L Respiratory Rate 16 Blood Pressure 104/61 Pulse Oximetry 98 07/19/20 16:00 07/19/20 18:00 07/19/20 18:45 Temperature 98.4 F 97.8 F Pulse Rate 52 L 64 61 Respiratory Rate 16 16 Blood Pressure 104/48 L 93/50 L Pulse Oximetry 100 98 07/19/20 20:00 07/19/20 22:00 07/19/20 23:49 Temperature 97.6 F 97.9 F Pulse Rate 65 56 L 56 L Respiratory Rate 18 20 Blood Pressure 89/55 L 91/44 L Pulse Oximetry 98 91 07/20/20 00:00 07/20/20 00:45 07/20/20 02:00 Temperature Pulse Rate 65 56 L Respiratory Rate 16 Blood Pressure 82/37 L 100/44 L Pulse Oximetry 97 98 07/20/20 04:00 07/20/20 06:00 Temperature 97.3 F L Pulse Rate 64 64 Respiratory Rate 20 Blood Pressure 91/65 L Pulse Oximetry 95 Intake/Output Intake/Output: Intake & Output 07/17/20 07/18/20 07/19/20 07/20/20 23:59 23:59 23:59 23:59 Intake Total 1600 1100 370 Output Total 1400 0 Balance 1600 -300 370 Meds/Results Medications: Active Medications Generic Name Dose Route Start Last Admin Trade Name Freq PRN Reason Stop Dose Admin Acetaminophen 650 mg 07/18/20 07:39 Acetaminophen 325 Mg Tablet PO Q4H PRN Mild Pain (1-3) or Fever Hydrocodone Bitart/Acetaminophen 1 tab 07/18/20 07:39 07/18/20 20:16 Hydrocodone/Acetaminophen (*Crx) 5-325 Mg Tablet PO 1 tab Q4H PRN Administration Pain Rated 4-6 Albuterol 1 puff 07/18/20 13:48 Albuterol Sulfate (*Sp) Aerosol 1 Puff INHALATION Q4H PRN shortness of breath or wheezing Calcium Carbonate 1,000 mg 07/18/20 09:00 07/19/20 10:51 Calcium Carbonate (Oscal) 500 Mg Tablet PO 1,000 mg DAILY ALISON Administration Enoxaparin Sodium 40 mg 07/19/20 09:00 07/19/20 08:55 Enoxaparin 40 Mg/0.4 Ml Syringe SUB-Q 40 mg DAILY ALISON Administration Famotidine 20 mg 07/19/20 09:00 0
[2020-07-20] MEDS: FAMOTIDINE 20 MG TABLET PO ×2 (08:56→20:26)
[2020-07-20] MEDS: HYDROcodone/acetaminophen (*CRX) 5-325 MG TABLET 1 TAB PO ×3 (08:56→22:16)
[2020-07-20] MEDS: CHOLECALCIFEROL 1,000 UNITS TABLET 3000 UNITS PO (08:56)
[2020-07-20] MEDS: SIMVASTATIN 20 MG TABLET 40 MG PO (08:56)
[2020-07-20] MEDS: CALCIUM CARBONATE (OSCAL) 500 MG TABLET 1000 MG PO (08:59)
[2020-07-20] MEDS: METOPROLOL SUCCINATE EXT REL 25 MG TABCR PO (08:59)
[2020-07-20] MEDS: GABAPENTIN 300 MG CAPSULE PO (08:59)
[2020-07-20] MEDS: ONDANSETRON INJ 4 MG/2 ML VIAL IV PUSH ×3 (08:59→22:24)
[2020-07-20] MEDS: SACCHAROMYCES BOULARDII 250 MG CAPSULE PO (08:59)
[2020-07-20] MEDS: ENOXAPARIN 40 MG/0.4 ML SYRINGE SUB-Q (09:00)
--- NOTE | 2020-07-20 10:30 | PC.NURSE ---
Patient to PR for stress test via wheelchair.
[2020-07-20] MEDS: SODIUM CHLORIDE 0.9% IV 1,000 ML 999 ML IV CONT (11:30)
--- NOTE | 2020-07-20 13:05 | PC.NURSE ---
Patient returned to room from NM stress test via stretcher.
--- NOTE | 2020-07-20 14:35 | PM.IMPN ---
Progress Note: A&P Assessment and Plan (1) Cardiac arrest with successful resuscitation: Code(s): I46.9 - Cardiac arrest, cause unspecified Status: Acute Assessment and Plan: Brief episode of asystole occurred during administration of medication for Lexiscan stress test. Please see subjective for further details. She is stable on the medical floor at this time. Monitor closely on telemetry She should avoid Lexiscan stress testing in the future Appreciate cardiology consultation (2) Chest pain: Qualifiers: Chest pain type: chest pain due to myocardial ischemia Ischemic chest pain type: unspecified angina pectoris type Qualified Code(s): I25.9 - Chronic ischemic heart disease, unspecified Code(s): R07.9 - Chest pain, unspecified Status: Acute Assessment and Plan: Troponins were mildly elevated with peak at 0.081 with relatively flat trend. She complained of discomfort in the lower sternal region that has now shifted to the left epigastric region. Symptoms atypical and do not feel consistent with ACS. Echo reviewed with no wall motion abnormalities. CTA negative for PE. Apprediate cardiology consultation. Await results of stress test Monitor clinically (3) Epigastric pain: Code(s): R10.13 - Epigastric pain Status: Acute Assessment and Plan: Patient endorses aching pain in the left epigastric region extending to left chest wall in the rib cage area. RUQ US negative. Lipase and LFTs within normal limits. Consider musculoskeletal etiology vs neuropathy vs GERD. Left rib x-ray negative for fracture. Continue Pepcid bid Recommend bland diet. Out of bed and upright with meals. Supportive care to include ice and heat Analgesics available as needed for pain (4) Graves disease: Code(s): E05.00 - Thyrotoxicosis with diffuse goiter without thyrotoxic crisis or storm Status: Inactive Assessment and Plan: Recently stopped medication. TSH is within normal limits. No further intervention. (5) Essential hypertension: Code(s): I10 - Essential (primary) hypertension Status: Acute Assessment and Plan: history of hypertension, however blood pressures have been low, down to 82/37 this morning. S/p 1 L fluid bolus today. Blood pressure improved to 108/52 hold lisinopril and metoprolol monitor blood pressure trends Subjective Date/time seen: 07/20/20 14:35 Interval history: Date of service: 6/10/Leo Carcamo is a 70 year old female with a history of asthma, hypertension, rheumatoid arthritis, and migraines who is seen in follow-up for epigastric/chest wall pain. Her pain is located in the left epigastric region just below her left breast and radiates to the left side rib cage. she reports overall, her pain is improved today but this time she rates her pain as 6/10. pain improved with medication. The pain is constant and sharp in Character, though she does note it is difficult to describe. she denies nausea, vomiting, fever, or chills. No dizziness or lightheadedness. No headache. She has been eating well. A code jenelle was called today during her Lexiscan stress test due to an episode of transient asystole. Dr. Gaytan present at time and ran code. I spoke with him after the event. He notes that immediately upon administration of medication, her heart rate promplty declined. He reports administering a couple chest compressions in which she immediately responded and pulse was restored. I was not present for the event. The patient notes that this event was quite startling for her, though she does not remember many of the details. She does feel that it made her anxious and may have worsened her pain somewhat. At this time, she is doing well and is in good spirits. Review of Systems Review of Systems: All systems reviewed & are unremarkable except as noted in HPI and below Exam Narrativ
[2020-07-20] MEDS: DOCUSATE SODIUM 100 MG CAPSULE PO (20:26)
[2020-07-20] MEDS: ACETAMINOPHEN 325 MG TABLET 650 MG PO (20:28)
[2020-07-21] VITALS: PULSE 68
[2020-07-21 04:00] VITALS: PULSE 56
[2020-07-21 05:41] LABS: Hematocrit 35.6 % (37.0-47.0); Hemoglobin 11.2 g/dL (12.0-15.0)
[2020-07-21] MEDS: HYDROcodone/acetaminophen (*CRX) 5-325 MG TABLET 1 TAB PO (05:43)
[2020-07-21] MEDS: ONDANSETRON INJ 4 MG/2 ML VIAL IV PUSH (05:44)
[2020-07-21 05:51] VITALS: BP 103/53; PULSE 59; RESP 16; TEMP 36.4; O2SAT 96
[2020-07-21 05:58] LABS: Anion Gap 6 mmol/L (8-16); Blood Urea Nitrogen 16 mg/dL (7-17); Calcium 8.9 mg/dL (8.4-10.2); Carbon Dioxide 27 mmol/L (22-30); Chloride 108 mmol/L (98-107); Estimated CRCL calculation 48 ml/min; Estimated Glomerular Filt Rate 55; Glucose 103 mg/dL (65-105); Sodium 141 mmol/L (137-145)
[2020-07-21 07:07] LABS: Potassium 3.9 mmol/L (3.4-5.0)
[2020-07-21 08:00] VITALS: PULSE 76
--- NOTE | 2020-07-21 08:14 | PM.PNCARD ---
Progress Note: A&P Assessment and Plan (1) Chest pain: Qualifiers: Chest pain type: chest pain due to myocardial ischemia Ischemic chest pain type: unspecified angina pectoris type Qualified Code(s): I25.9 - Chronic ischemic heart disease, unspecified Code(s): R07.9 - Chest pain, unspecified Status: Acute Assessment and Plan: Atypical. Given essentially normal LHC in 2019 doubt this is ACS. Could be related to musculoskeletal as it is reproducible on edge of left rib cage. Echo is normal with no wall motion abnormalities. Troponin peaked at .08. CT chest shows no pulm embolism. Abdominal u/s was unremarkable. Discussed results of lexiscan myoview stress test that it is OK, no ischemia. Advise she should not have any more in the future given asystole with it. No further cardiac workup is needed. (2) Essential hypertension: Code(s): I10 - Essential (primary) hypertension Status: Acute Assessment and Plan: Low normal. Stopped Lisinopril and Metoprolol. F/U with me in 1-2 weeks. Advised to check BP at home regularly and let us know if too low (<100 systolic) or too high (>160 systolic). (3) Dyslipidemia: Code(s): E78.5 - Hyperlipidemia, unspecified Status: Acute Assessment and Plan: On Statin. (4) Takotsubo cardiomyopathy: Code(s): I51.81 - Takotsubo syndrome Status: Acute Assessment and Plan: History of it. Subjective Date/time seen: 07/21/20 08:14 Still has some left edge of rib cage sharp pain and numbness. No sob. Exam Const: General: cooperative, healthy appearing and comfortable Resp: Auscultation: clear to auscultation bilaterally, no crackles, no rales, no rhonchi and no wheezes Cardio: Jugular venous distension: no JVD Rate: regular rate Rhythm: regular rhythm Heart sounds: no murmurs Peripheral pulses: dorsalis pedis present GI: GI Palp: No abdominal tenderness and Yes Soft to palpation Neuro: General: oriented to person, oriented to place and oriented to time Extrem: Right lower extremity: no edema Left lower extremity: no edema Objective Data Vital Signs Vital Signs: Vital Signs - 24 hr 07/20/20 08:55 07/20/20 08:59 07/20/20 12:00 Temperature Pulse Rate 55 L 65 Respiratory Rate Blood Pressure 108/52 L Pulse Oximetry 07/20/20 13:34 07/20/20 14:00 07/20/20 16:00 Temperature 96.8 F L 96.8 F L Pulse Rate 58 L 58 L 69 Respiratory Rate 16 16 Blood Pressure 105/48 L 105/52 L Pulse Oximetry 100 100 07/20/20 20:00 07/20/20 21:06 07/20/20 21:07 Temperature 97.7 F 97.7 F Pulse Rate 64 64 64 Respiratory Rate 16 16 16 Blood Pressure 91/49 L 99/47 L Pulse Oximetry 99 99 99 07/21/20 00:00 07/21/20 04:00 07/21/20 05:51 Temperature 97.5 F L Pulse Rate 68 56 L 59 L Respiratory Rate 16 Blood Pressure 103/53 L Pulse Oximetry 96 Intake/Output Intake/Output: Intake & Output 07/18/20 07/19/20 07/20/20 07/21/20 23:59 23:59 23:59 23:59 Intake Total 1600 1100 1900 300 Output Total 1400 0 950 Balance 1600 -300 1900 -650 Meds/Results Medications: Active Medications Generic Name Dose Route Start Last Admin Trade Name Freq PRN Reason Stop Dose Admin Acetaminophen 650 mg 07/20/20 14:54 07/20/20 20:28 Acetaminophen 325 Mg Tablet PO 650 mg Q4H PRN Administration Pain Hydrocodone Bitart/Acetaminophen 1 tab 07/20/20 14:54 07/21/20 05:43 Hydrocodone/Acetaminophen (*Crx) 5-325 Mg Tablet PO 1 tab Q6H PRN Administration Breakthrough Pain Albuterol 1 puff 07/18/20 13:48 Albuterol Sulfate (*Sp) Aerosol 1 Puff INHALATION Q4H PRN shortness of breath or wheezing Calcium Carbonate 1,000 mg 07/18/20 09:00 07/20/20 08:59 Calcium Carbonate (Oscal) 500 Mg Tablet PO 1,000 mg DAILY ALISON Administration Docusate Sodium 100 mg 07/20/20 21:00 07/20/20 20:26 Docusate Sodium 100 Mg Capsule PO 100 mg Q12HR ALISON Admini
[2020-07-21 09:18] VITALS: O2SAT 97
[2020-07-21] MEDS: ACETAMINOPHEN 325 MG TABLET 650 MG PO (09:50)
[2020-07-21] MEDS: CHOLECALCIFEROL 1,000 UNITS TABLET 3000 UNITS PO (09:51)
[2020-07-21] MEDS: SIMVASTATIN 20 MG TABLET 40 MG PO (09:51)
[2020-07-21] MEDS: CALCIUM CARBONATE (OSCAL) 500 MG TABLET 1000 MG PO (09:51)
[2020-07-21] MEDS: GABAPENTIN 300 MG CAPSULE PO (09:51)
[2020-07-21] MEDS: FAMOTIDINE 20 MG TABLET PO (09:51)
[2020-07-21] MEDS: ENOXAPARIN 40 MG/0.4 ML SYRINGE SUB-Q (09:51)
[2020-07-21] MEDS: DOCUSATE SODIUM 100 MG CAPSULE PO (09:51)
[2020-07-21] MEDS: SACCHAROMYCES BOULARDII 250 MG CAPSULE PO (09:51)
[2020-07-21] MEDS: polyethylene glycoL 3350 17 GM POWD.PACK PO (09:52)
[2020-07-21 12:00] VITALS: PULSE 56
--- NOTE | 2020-07-21 14:04 | PM.DS ---
DS: Admitting Diagnosis Admitting Diagnosis Admitting Diagnosis: Chest pain DS: Discharge Diagnosis Discharge Diagnosis (1) Chest pain: Qualifiers: Chest pain type: chest pain due to myocardial ischemia Ischemic chest pain type: unspecified angina pectoris type Qualified Code(s): I25.9 - Chronic ischemic heart disease, unspecified Code(s): R07.9 - Chest pain, unspecified Status: Acute Assessment and Plan: Troponins were mildly elevated with peak at 0.081 with relatively flat trend. She complained of discomfort in the lower sternal region that shifted to the left epigastric region. Symptoms atypical and do not feel consistent with ACS. Echo reviewed with no wall motion abnormalities. CTA negative for PE. Test showed small area of mild infarct involving mid inferior and mid inferoseptal segments of left ventricle. She was seen in consultation by cardiology and no further cardiac workup was felt to be necessary. (2) Epigastric pain: Code(s): R10.13 - Epigastric pain Status: Acute Assessment and Plan: Patient endorsed aching pain in the left epigastric region extending to left chest wall in the rib cage area. RUQ US negative. Lipase and LFTs within normal limits. Consider musculoskeletal etiology vs neuropathy vs GERD. Left rib x-ray negative for fracture. She was started on Pepcid and we discussed dietary modifications for potential GERD as the etiology. Continue her gabapentin. She can apply ice or heat as needed for pain. Short course of analgesics provided. Her pain improved. Discussed need to follow-up with PCP should pain persist and consider CT abdomen/pelvis. (3) Cardiac arrest with successful resuscitation: Code(s): I46.9 - Cardiac arrest, cause unspecified Status: Acute Assessment and Plan: Brief episode of asystole occurred during administration of medication for Lexiscan stress test. Dr. Gaytan present at time of event and reports administering a couple chest compressions in which she immediately responded and pulse was restored. She remained stable on the medical floor following this episode. She was monitored on telemetry overnight with no further episodes. She should avoid Lexiscan stress test in the future. (4) Graves disease: Code(s): E05.00 - Thyrotoxicosis with diffuse goiter without thyrotoxic crisis or storm Status: Inactive Assessment and Plan: Recently stopped medication. TSH is within normal limits. No further intervention. (5) Essential hypertension: Code(s): I10 - Essential (primary) hypertension Status: Acute Assessment and Plan: History of hypertension, however blood pressures were in the low-normal range. Lisinopril and metoprolol discontinued per Cardiology recommendations. Follow-up with cardiology in 1-2 weeks for blood pressure monitoring. DS: Summary Hospital Course Reason for hospitalization: Chest pain Hospital Course: Date of admission: 07/18/2020 Date of discharge: 07/21/2020 Alee Carcamo is a 70 year old female with a history of asthma, hypertension, rheumatoid arthritis, and migraines who presented to the emergency department on 07/18/20 with complaints of left-sided chest pain ongoing for 2 days. Upon presentation to the emergency department, her blood pressure is slightly elevated at 1 50/87 with additional vital signs stable, CBC and BMP unremarkable, troponin elevated at 0.056 with peak at 0.081, and CXR with no acute cardiopulmonary findings. She was admitted to the hospitalist service and seen in consultation by cardiology. Please see above for further details. Her pain slowly improved and she began feeling better. Given her overall improvement, she was determined to no longer require inpatient care and was felt to be stable for discharge. We discussed worrisome signs and symptoms for which to return and she was educated on her medications. She was discharged in he
== END 2020-07-21 16:09 | disposition home or self-care (01) | DRG 313 ==
LOC: ANHED 10:42 → ANHIMU 10:48 → ANH2MED 07-20 03:46
PROVIDERS: Family Medicine; Nurse Practitioner; Physician Assistant; Admitting Provider Family Medicine; Emergency Provider Emergency Medicine; PCP Family Medicine; Visit Provider Internal Medicine
DX: R07.89 Other chest pain (principal); I46.9 Cardiac arrest, cause unspecified; K21.9 Gastro-esophageal reflux disease without esophagitis; G62.9 Polyneuropathy, unspecified; I10 Essential (primary) hypertension; E78.5 Hyperlipidemia, unspecified; E03.9 Hypothyroidism, unspecified; M19.90 Unspecified osteoarthritis, unspecified site; J45.909 Unspecified asthma, uncomplicated; L40.9 Psoriasis, unspecified; M06.9 Rheumatoid arthritis, unspecified; E05.00 Thyrotoxicosis with diffuse goiter without thyrotoxic crisis or storm; Z90.710 Acquired absence of both cervix and uterus; Z87.891 Personal history of nicotine dependence
CPT/HCPCS: 36415; 71046; 71100; 71275; 76705; 78452; 80048; 80053; 83690; 83735; 84443; 84484; 85014; 85018; 85025; 85610; 85730; 93005; 93017; 93306; 96361; 96372; 96374; 96375; 96376; 99285; A9270; A9502; G0378; J1650; J1885; J2270; J2405; J2785; J7030; J7050; Q9967

== ENCOUNTER → 2020-10-09 11:33 | Outpatient (CLI) | payer MEDICARE, SELFPAY ==
--- NOTE | ~2020-10-09 | MM_ITS ---
EXAMINATION: MM screening [facility] BI w louise HISTORY: Screening TECHNIQUE: Craniocaudal and mediolateral oblique 3-D tomosynthesis images were obtained and synthetic 2-D images were generated. CAD analysis was submitted and interpreted. COMPARISON: Comparison to multiple prior studies sequentially, with oldest reviewed study dated 06/2016. BREAST PARENCHYMAL COMPOSITION: There are scattered areas of fibroglandular density. FINDINGS: No significant change to breast calcifications. There is no evidence of suspicious mass, ca lcification, or architectural distortion to suggest malignancy in either breast. There has been no thao spicious interval change. IMPRESSION: 1. No mammographic evidence of malignancy. 2. Recommend routine screening mammography in one year. BI-RADS Category 2: Benign finding(s). Reviewed, dictated and finalized at location A.
== END ==
PROVIDERS: PCP Family Medicine; Visit Provider Nurse Practitioner
DX: Z12.31 Encounter for screening mammogram for malignant neoplasm of breast (principal)
CPT/HCPCS: 77063; 77067

== ENCOUNTER 2020-10-21 12:44 | Outpatient (CLI) | payer MEDICARE, SELFPAY ==
--- NOTE | ~2020-10-21 | MR_ITS ---
EXAMINATION: MR cervical spine wo con EXAM DATE: 10/21/2020 13:30 INDICATION: Cervical spondylosis without myelopathy. Neck pain. TECHNIQUE: Multi-sequential, multiplanar MR images of the cervical spine were obtained without contra st. Axial T2, axial T2 MERGE sequence. Sagittal T1, T2, T2 fat saturation images also obtained. Com parison is made to prior examination from 01/30/2016. FINDINGS: There is moderate disc disease at C6-7, mild to moderate at C5-6 with 3 mm anterolisthesis . The spinal cord signal intensity and intrinsic morphology is normal. Cervicomedullary junction is n ormal in appearance. There are no suspicious marrow signal abnormalities. Paraspinal soft tissue is u nremarkable. Level by level evaluation: C2-C3: Disc does not extend beyond the endplate margin. Uncovertebral joint arthropathy: Mild to moderate right, mild left. Facet joint arthropathy: Severe bilateral. Neural foraminal stenosis: Moderate right, mild left. Central canal stenosis: No stenosis. C3-C4: Disc does not extend beyond the endplate margin. Uncovertebral joint arthropathy: Mild to moderate left, mild right. Facet joint arthropathy: Severe left, moderate to severe right. Neural foraminal stenosis: Mild to moderate bilateral. Central canal stenosis: No stenosis. C4-C5: There is a mild diffuse disc bulge. Uncovertebral joint arthropathy: Moderate left, mild to moderate right. Facet joint arthropathy: Severe left, moderate to severe right. Neural foraminal stenosis: Moderate left, mild right. Central canal stenosis: No stenosis. C5-C6: There is a mild diffuse disc bulge. Uncovertebral joint arthropathy: Moderate bilateral. Facet joint arthropathy: Severe right, moderate to severe left. Neural foraminal stenosis: Moderate to severe right, mild to moderate left. Central canal stenosis: Mild. C6-C7: There is a mild to moderate diffuse disc bulge. Uncovertebral joint arthropathy: Severe bilateral. Facet joint arthropathy: Mild to moderate bilateral. Neural foraminal stenosis: Severe bilateral. Central canal stenosis: Mild. C7-T1: Disc does not extend beyond the endplate margin. Uncovertebral joint arthropathy: Moderate bilateral. Facet joint arthropathy: Moderate right, mild to moderate left. Neural foraminal stenosis: Mild to moderate right. Central canal stenosis: No stenosis. Mild progression spondylosis compared to 2016. IMPRESSION: 1. C6-7 severe bilateral neural foraminal stenosis. 2. Advanced cervical arthropathy. Reviewed, dictated and finalized at location B.
== END 2020-10-21 12:45 | disposition home or self-care (01) ==
PROVIDERS: PCP Family Medicine; Visit Provider Nurse Practitioner Adult Health
DX: M47.812 Spondylosis without myelopathy or radiculopathy, cervical region (principal); M48.02 Spinal stenosis, cervical region
CPT/HCPCS: 72141

== ENCOUNTER → 2020-10-24 17:54 | Outpatient (CLI) | payer MEDICARE, SELFPAY ==
--- NOTE | ~2020-10-24 | DEXA_ITS ---
Bone Density Report Name: Alee Carcamo Age: 70 Sex: Female Ethnicity: White Date of : 1950 Indication: postmenopausal; screening for osteoporosis; height loss; asthma or emphysema; hysterectomy; Referring Provider: Jelly, Shanta Study: Bone densitometry was performed. Exam Date: October 24, 2020 Accession number: [id number] Bone Density: Region BMD T-score Z-score Classification AP Spine (L1, L3, L4) 1.315 2.4 4.5 Normal Femoral Neck (Left) 0.711 -1.2 0.5 Osteopenia Total Hip (Left) 0.917 -0.2 1.3 Normal Femoral Neck (Right) 0.716 -1.2 0.6 Osteopenia Total Hip (Right) 0.882 -0.5 1.0 Normal Total Hip Mean 0.900 -0.4 1.2 Normal World Health Organization criteria for BMD impression classify patients as: Normal (T-score at or above -1.0), Osteopenia (T-score between -1.0 and -2.5), or Osteoporosis (T-score at or below -2.5). 10-year Fracture Risk(1): Major Osteoporotic Fracture 8.6% Hip Fracture 1.0% Reported Risk Factors: [place] (), Neck BMD=0.716, BMI=33.3 (1) FRAX(R) Version 3.08. Fracture probability calculated for an untreated patient. Fracture probability may be lower if the patient has received treatment. Previous Exams: Region Exam Age BMD T-score BMD Change BMD Change Date g/cm2 vs Baseline vs Previous AP Spine(L1, L3, L4) 10/24/2020 70 1.315 2.4 0.149* 0.018 07/08/2017 67 1.297 2.2 0.131 -0.099* 06/02/2015 65 1.396 3.1 0.230 0.145* 04/17/2012 62 1.251 1.8 0.085 0.125* 10/07/2008 58 1.126 0.7 -0.040 -0.028* 09/24/2006 56 1.155 0.9 -0.012 -0.012 02/20/2004 54 1.166 1.0 Total Hip(Left) 10/24/2020 70 0.917 -0.2 0.018 -0.001 07/08/2017 67 0.917 -0.2 0.019 0.057* 06/02/2015 65 0.860 -0.7 -0.039 0.045* 04/17/2012 62 0.815 -1.0 -0.084 -0.092* 10/07/2008 58 0.907 -0.3 0.008 0.026 09/24/2006 56 0.881 -0.5 -0.018 -0.018 02/20/2004 54 0.899 -0.4 Total Hip(Right) 10/24/2020 70 0.882 -0.5 -0.024 0.020 07/08/2017 67 0.862 -0.7 -0.044 0.048* 06/02/2015 65 0.814 -1.1 -0.092 0.018 04/17/2012 62 0.795 -1.2 -0.110 -0.140* 10/07/2008 58 0.935 -0.1 0.030 0.078* 09/24/2006 56 0.857 -0.7 -0.049 -0.049 02/20/2004 54 0.905 -0.3
== END ==
PROVIDERS: PCP Family Medicine; Visit Provider Nurse Practitioner
DX: Z78.0 Asymptomatic menopausal state (principal); M85.851 Other specified disorders of bone density and structure, right thigh; M85.852 Other specified disorders of bone density and structure, left thigh
CPT/HCPCS: 77080

== ENCOUNTER 2020-11-07 11:17 | Outpatient (CLI) | payer MEDICARE, SELFPAY ==
[2020-11-07 14:06] LABS: Free T4 Free Thyroxine 1.52 ng/mL (0.78-2.19)
[2020-11-07 14:18] LABS: Thyroid Stimulating Hormone 0.018 uIU/mL (0.465-4.680)
== END 2020-11-07 11:18 | disposition home or self-care (01) ==
PROVIDERS: PCP Family Medicine; Visit Provider Internal Medicine Endocrinology, Diabetes & Metabolism
DX: E05.90 Thyrotoxicosis, unspecified without thyrotoxic crisis or storm (principal)
CPT/HCPCS: 36415; 84439; 84443

== ENCOUNTER → 2020-12-25 09:19 | Outpatient (CLI) | payer MEDICARE, SELFPAY ==
--- NOTE | ~2020-12-25 | XR_ITS ---
EXAMINATION: XR knee RT min 4V DATE: 12/25/2020 09:43 INDICATION: Right knee pain. TECHNIQUE: 4 views of right knee including standing views were obtained. COMPARISON: None. FINDINGS: Bone alignment is normal. No fracture. There is severe osteoarthritis of lateral compartmen t and mild osteoarthritis of medial and patellofemoral compartments. There is a small knee joint effu padmaja. IMPRESSION: 1. Severe right knee osteoarthritis. 2. Small right knee joint effusion. Reviewed, dictated and finalized at location A. 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
== END ==
PROVIDERS: PCP Family Medicine; Visit Provider Nurse Practitioner Adult Health
DX: M17.11 Unilateral primary osteoarthritis, right knee (principal); M25.461 Effusion, right knee
CPT/HCPCS: 73564

== ENCOUNTER → 2021-04-24 10:13 | Outpatient (CLI) | payer MEDICARE, SELFPAY ==
--- NOTE | ~2021-04-24 | MR_ITS ---
EXAMINATION: MR lumbar spine wo con DATE: 04/24/2021 11:00 INDICATION: Lumbar radiculopathy TECHNIQUE: Magnetic resonance imaging (MRI) of the lumbar spine was performed without intravenous con trast. Sequences included sagittal T2-weighted FSE, sagittal T2-weighted FS FSE, sagittal T1-weighted FSE, and axial T2-weighted FSE. COMPARISON: Radiographs dated 03/29/2019 and MRI dated 02/25/2010 FINDINGS: 15 degree dextroscoliosis between L2 and L4 with 20% left-sided vertebral body height loss at L3 read 2 mm retrolisthesis L1 on L2 and 3 mm retrolisthesis L2 on L3. Remaining vertebral body heights are normal. Severe disc height loss at L1-L2, L2-L3 and L3-L4 with associated fibrofatty and fibrovascula r degenerative endplate changes. Marrow signal is otherwise normal. Mild disc height loss at L4-L5. T he conus medullaris terminates at L1-L2. There is normal signal in the caudal spinal cord. Paraverteb ral soft tissues are unremarkable. The following disc levels are specifically discussed: T12-L1: The disc does not extend beyond the endplate margin. There is mild bilateral facet joint oste oarthritis. There is no neural foraminal stenosis. There is no central canal stenosis. L1-L2: Diffuse disc bulge with annular fissure. There is mild right and moderate left facet joint ost eoarthritis. There is moderate bilateral neural foraminal stenosis. There is severe central canal haydee nosis. L2-L3: Posterior disc osteophyte complex. There is mild right and moderate to severe left facet joint osteoarthritis. There is moderate right and severe left neural foraminal stenosis. There is severe c entral canal stenosis. L3-L4: Disc is bulging with annular fissure and small central disc extrusion with disc material exten ding up to 6 mm cephalad to the level of the inferior endplate of L3. There is moderate right and severe left facet joint osteoarthritis. There is mild right and moderate to severe left neural foraminal stenosis. There is moderate central canal stenosis. L4-L5: Disc is bulging with annular fissure. There is severe bilateral facet joint osteoarthritis. Th ere is moderate left and mild to moderate right neural foraminal stenosis. There is mild central parminder l stenosis. L5-S1: Disc is mildly bulging. There is severe bilateral facet joint osteoarthritis. There is mild le ft and moderate right neural foraminal stenosis. There is no central canal stenosis. IMPRESSION: 1. Mild lumbar dextroscoliosis with severe spondylosis including severe central canal stenosis at bot h L1-L2 and L2-L3. Reviewed, dictated and finalized at location A. IMPRESSION: 1. Mild lumbar dextroscoliosis with severe spondylosis including severe central canal stenosis at both L1-L2 and L2-L3.
== END ==
PROVIDERS: Visit Provider Nurse Practitioner Adult Health
DX: M54.16 Radiculopathy, lumbar region (principal); M41.86 Other forms of scoliosis, lumbar region; M47.816 Spondylosis without myelopathy or radiculopathy, lumbar region; M48.061 Spinal stenosis, lumbar region without neurogenic claudication
CPT/HCPCS: 72148

== ENCOUNTER → 2021-09-19 15:28 | Outpatient (CLI) | payer MEDICARE, SELFPAY ==
--- NOTE | ~2021-09-19 | XR_ITS ---
EXAM: XR thoracic spine 3V DATE: 09/19/2021 16:18 HISTORY: Thoracic back pain . COMPARISON: None available. FINDINGS: Decreased bone mineralization Vertebral body alignment intact. Vertebral body heights pres erved. Multilevel mild disc space narrowing and osteophytosis. No traumatic malalignment or fracture. Visualized lung parenchyma is clear. Incidental note of a lumbar scoliosis and severe degenerative d isc disease at L1-2. IMPRESSION: Osteopenia. Multilevel mild thoracic degenerative disc disease. Reviewed, dictated and finalized at location K.
== END ==
PROVIDERS: PCP Family Medicine; Visit Provider Nurse Practitioner Family
DX: M41.9 Scoliosis, unspecified (principal); M85.88 Other specified disorders of bone density and structure, other site; M47.814 Spondylosis without myelopathy or radiculopathy, thoracic region
CPT/HCPCS: 72072

== ENCOUNTER 2021-10-23 11:15 | Outpatient (CLI) | payer MEDICARE, SELFPAY ==
--- NOTE | ~2021-10-23 | XR_ITS ---
EXAM: XR foot RT min 3V DATE: 10/23/2021 11:37 HISTORY: S99.921A, HORSE STEPPED ON DISTAL METATARSALS 4DAYS AGO . COMPARISON: 03/29/2019. FINDINGS: Hardware fixation of the first MTP, with fractured fixation plate and fixation screw, in u nchanged position. Decreased mineralization. No osseous fracture or dislocation. No lytic or blastic lesion. Severe degenerative change at the first MTP. Mild-moderate degenerative changes in ankle and midfoot. Plantar enthesopathy. No erosion or periosteal change. Soft tissues within normal limits. IMPRESSION: No acute osseous finding in the right foot. Reviewed, dictated and finalized at location K.
== END 2021-10-23 11:16 | disposition home or self-care (01) ==
LOC: ANHIMG 11:19
PROVIDERS: PCP Family Medicine; Visit Provider Family Medicine
DX: S99.921A Unspecified injury of right foot, initial encounter (principal)
CPT/HCPCS: 73630

== ENCOUNTER → 2021-11-12 11:34 | Outpatient (CLI) | payer MEDICARE, SELFPAY ==
--- NOTE | ~2021-11-12 | MM_ITS ---
EXAMINATION: MM screening [facility] BI w louise HISTORY: Screening mammogram, family history of breast cancer in her sister. TECHNIQUE: Craniocaudal and mediolateral oblique 3-D tomosynthesis images were obtained and synthetic 2-D images were generated. CAD analysis was submitted and interpreted. COMPARISON: 10/09/2020, 10/07/2019, 07/16/2018 BREAST PARENCHYMAL COMPOSITION: There are scattered areas of fibroglandular density. FINDINGS: There are stable calcification of the left breast which demonstrate an adjacent biopsy savita er. There is no suspicious mass, calcification, or architectural distortion to suggest malignancy in either breast. There has been no suspicious interval change. IMPRESSION: 1. No mammographic evidence of malignancy. 2. Recommend routine screening mammography in one year. BI-RADS Category 2: Benign finding(s). Reviewed, dictated and finalized at location A.
== END ==
PROVIDERS: PCP Family Medicine; Visit Provider Nurse Practitioner
DX: Z12.31 Encounter for screening mammogram for malignant neoplasm of breast (principal)
CPT/HCPCS: 77063; 77067

== ENCOUNTER 2022-11-07 01:30 | Day surgery (SDC) | payer MEDICARE, SELFPAY ==
[2022-10-24 14:43] VITALS: BMI 33.7
[2022-11-07 11:48] VITALS: BP 116/60; PULSE 70; RESP 18; TEMP 36.1; O2SAT 98
[2022-11-07] MEDS: LACTATED RINGERS 1,000 ML 150 ML IV CONT (12:02)
--- NOTE | 2022-11-07 12:18 | PM.HPGS ---
History of Present Illness History of Present Illness Consent: Risks, benefits, and alternatives have been discussed and questions answered. Patient agrees to proceed with procedure. Chief complaint: positive cologuard test Narrative: Alee Carcamo is a 72 year old female Presents for screening colonoscopy. Patient recently found to have positive Cologuard test. Patient's current weight appetite and bowel movements are normal. She denies abdominal pain. She has had no bleeding. Family history noncontributory. Review of Systems Review of Systems: Review of systems noncontributory. [facility] Past Medical History Medical History Arthritis Asthma BMI 30.0-30.9,adult Colitis Dyslipidemia Effusion of knee joint Encounter for medication management Essential hypertension High cholesterol Hypertension Inflammatory arthritis Methotrexate, nursing home, current use Migraine Mild intermittent asthma with (acute) exacerbation Neck pain Neuropathy Neck. She gets injections in her neck. Paresthesia of bilateral legs Peripheral polyneuropathy Post herpetic neuralgia Pre-op evaluation Primary osteoarthritis, right shoulder (~2014) Psoriasis (~1999) Rheumatoid arthritis Right knee DJD Takotsubo cardiomyopathy Thyroid disease Vasovagal syncope Surgical History Surgical History Cataract extraction status H/O cardiac catheterization H/O shoulder surgery On the right H/O: hysterectomy History of elbow surgery History of mandibular surgery History of right shoulder replacement History of toe surgery History of tonsillectomy Family History Family History Sibling Family history of thyroid disease Asthma Family history of arthritis Family history of type 1 diabetes mellitus Mother Family history of osteoporosis Family history of migraine headaches Family history of cataracts Asthma Other Diabetes mellitus Family history of allergic disorder Family history of congestive heart failure Family history of coronary artery disease Family history of malignant neoplasm of breast in first degree relative Family history of malignant neoplasm of kidney Hypertension Social History Social History Social History: The patient is and has no children. Her is the durable power spray stainer for healthcare. The patient desires to be a full code. 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 The patient used to smoke she quit smoking in 2011. She does not use any marijuana alcohol or illicit drugs. Smoking packs per day: 0.5 Smoking cigarettes per day: 10.0 Years smoked: 35 Smoking pack-years: 17.50 Smoking status: Former smoker Tobacco type: cigarettes Second hand tobacco smoke exposure: No Smoking end date: 02/10/11 Alcohol intake: never Substance use: never Substance use type: does not use Lack of Transportation: No Lack of Food: Never True Current Housing: I Have Housing Concerned About Future Housing: No Difficulty Paying Gas/Electric Bills: No Difficulty Paying for Meds: No Currently Unemployed: No Education: Decline to Answer Difficulty w/ Childcare or Family Care: No Living arrangements: with family Gender identity (if verbalized by the patient): Female Sexual Orientation (if Verbalized by the Patient): Straight or Heterosexual Spiritual care concerns: No Agree to blood products: Yes Meds Home Medications and Allergies Home Medications Medication Instructions Recorded Confirmed Type lactobacillus combination no.4 15 15,000 mmu cells PO DAILY 01/27/19 11/07/22 History billion cell capsule (Senior Probiotic) cholecalciferol (vitamin D3) 50 3,000 unit PO DAILY 03/08/20 11/07/22 History mcg (2,000 unit) liane
--- NOTE | 2022-11-07 12:25 | WPDANESEPPF ---
Anes - Initial Pre Proc Eval Procedure: Operation Date: 11/07/22 13:00 Proposed Procedures p Colonoscopy - Jean Dhillon MD Date/Time: 11/07/22 12:25 Surgeon: Jean Dhillon MD Pre Op Diagnosis: positive cologuard test Patient Data Age: 72 Gender: F Height: 1.6 m Weight: 83.4 kg Last Vital Signs Temp 97 F L 11/07/22 11:48 Pulse 70 11/07/22 11:48 Resp 18 11/07/22 11:48 BP 116/60 11/07/22 11:48 Pulse Ox 98 11/07/22 11:48 O2 Del Method Room Air 11/07/22 11:48 Allergies Allergy/AdvReac Type Severity Reaction Status Date / Time Sulfa (Sulfonamide Allergy Unknown Itching Verified 11/07/22 11:44 Antibiotics) codeine AdvReac Unknown Itching Verified 11/07/22 11:44 hydrocodone AdvReac Itching Verified 11/07/22 11:44 Home Medications Medication Instructions Recorded Confirmed Type lactobacillus combination no.4 15 15,000 mmu cells PO DAILY 01/27/19 11/07/22 History billion cell capsule (Senior Probiotic) cholecalciferol (vitamin D3) 50 3,000 unit PO DAILY 03/08/20 11/07/22 History mcg (2,000 unit) chewable tablet clotrimazole-betamethasone 1 1 applic topical BID #45 grams 04/30/22 11/07/22 Rx %-0.05 % topical cream fluticasone 250 mcg-salmeterol 50 1 inh inhalation BID #3 device 04/30/22 11/07/22 Rx mcg/dose blistr powdr for inhalation (Advair Diskus) calcium carbonate 600 mg calcium 600 mg PO DAILY #90 tabs 05/16/22 11/07/22 Rx (1,500 mg) tablet (Calcium) gabapentin 300 mg capsule 300 mg PO BID #180 caps 07/08/22 11/07/22 Rx diclofenac sodium 75 mg See Rx Instructions .Route 10/19/22 11/07/22 Rx tablet,delayed release .COMPLEX #180 tabs lisinopril 2.5 mg tablet See Rx Instructions .Route 10/21/22 11/07/22 Rx .COMPLEX #90 tabs methimazole 5 mg tablet 5 mg PO DAILY #90 tabs 11/06/22 11/07/22 Rx omeprazole 20 mg capsule,delayed 20 mg PO DAILY #180 caps 11/06/22 11/07/22 Rx release simvastatin 40 mg tablet See Rx Instructions .Route 11/06/22 11/07/22 Rx .COMPLEX #90 tabs Patient hx anesthesia problems: none Family hx anesthesia problems: none Results Review: All pre-operative results and documents have been reviewed as part of the pre-operative evaluation. [facility] Past Medical History Medical History Arthritis Asthma BMI 30.0-30.9,adult Colitis Dyslipidemia Effusion of knee joint Encounter for medication management Essential hypertension High cholesterol Hypertension Inflammatory arthritis Methotrexate, termite technician, current use Migraine Mild intermittent asthma with (acute) exacerbation Neck pain Neuropathy Neck. She gets injections in her neck. Paresthesia of bilateral legs Peripheral polyneuropathy Post herpetic neuralgia Pre-op evaluation Primary osteoarthritis, right shoulder (~2014) Psoriasis (~1999) Rheumatoid arthritis Right knee DJD Takotsubo cardiomyopathy Thyroid disease Vasovagal syncope Surgical History Surgical History Cataract extraction status H/O cardiac catheterization H/O shoulder surgery On the right H/O: hysterectomy History of elbow surgery History of mandibular surgery History of right shoulder replacement History of toe surgery History of tonsillectomy Family History Family History Sibling Family history of thyroid disease Asthma Family history of arthritis Family history of type 1 diabetes mellitus Mother Family history of osteoporosis Family history of migraine headaches Family history of cataracts Asthma Other Diabetes mellitus Family history of allergic disorder Family history of congestive heart failure Family history of coronary artery disease Family history of malignant neoplasm of breast in first degree relative Family history of malignant neoplasm of kidney Hypertension Social History Social History (Review
[2022-11-07 13:18] VITALS: BP 107/52; PULSE 62; RESP 16; O2SAT 98
[2022-11-07 13:28] VITALS: BP 112/65; PULSE 67; RESP 21; O2SAT 100
[2022-11-07 13:38] VITALS: BP 106/62; PULSE 64; RESP 21; O2SAT 98
== END 2022-11-07 13:44 | disposition home or self-care (01) ==
PROVIDERS: PCP Family Medicine; Visit Provider Internal Medicine Gastroenterology
PROC: 0DJD8ZZ Inspection of Lower Intestinal Tract, Via Natural or Artificial Opening Endoscopic (ICD-10-PCS; CPT 45378; principal; 2022-11-07 13:00)
DX: Z12.11 Encounter for screening for malignant neoplasm of colon (principal); R19.5 Other fecal abnormalities; K64.8 Other hemorrhoids; E78.00 Pure hypercholesterolemia, unspecified; I10 Essential (primary) hypertension; J45.20 Mild intermittent asthma, uncomplicated; G62.9 Polyneuropathy, unspecified; M06.9 Rheumatoid arthritis, unspecified; L40.9 Psoriasis, unspecified; E07.9 Disorder of thyroid, unspecified; I51.81 Takotsubo syndrome; Z87.891 Personal history of nicotine dependence; E66.9 Obesity, unspecified; Z68.32 Body mass index [BMI] 32.0-32.9, adult; Z79.631 Long term (current) use of antimetabolite agent
CPT/HCPCS: G0121; J2704; J7120

== ENCOUNTER 2022-12-30 13:36 | Outpatient (CLI) | payer MEDICARE, SELFPAY ==
--- NOTE | 2022-12-30 13:54 | ECG_ITS ---
Measurements Intervals [place] Rate: 58 P: 54 NE: 138 QRS: -66 QRSD: 145 T: 30 QT: 453 QTc: 447 Interpretive Statements SINUS BRADYCARDIA RIGHT BUNDLE BRANCH BLOCK LEFT ANTERIOR FASCICULAR BLOCK BASELINE WANDER- I, II ABNORMAL ECG COMPARED TO ECG 07/18/2020 06:00:46 SINUS BRADYCARDIA NOW PRESENT Electronically Signed On 12-30-2022 14:21:04 [employer] REPAIR SHOP MANAGER by Monico Gaytan D.O.
== END 2022-12-30 13:37 | disposition home or self-care (01) ==
PROVIDERS: PCP Family Medicine; Visit Provider Nurse Practitioner Family
DX: M17.11 Unilateral primary osteoarthritis, right knee (principal); I45.10 Unspecified right bundle-branch block; I44.4 Left anterior fascicular block
CPT/HCPCS: 93005

== ENCOUNTER → 2023-01-17 13:56 | Outpatient (CLI) | payer MEDICARE, SELFPAY ==
--- NOTE | ~2023-01-17 | MM_ITS ---
EXAMINATION: MM screening [facility] BI w louise HISTORY: Screening mammogram, family history of breast cancer in her sisters. TECHNIQUE: Craniocaudal and mediolateral oblique 3-D tomosynthesis images were obtained and synthetic 2-D images were generated. CAD analysis was submitted and interpreted. COMPARISON: 11/12/2021, 10/09/2020, 10/07/2019 BREAST PARENCHYMAL COMPOSITION: There are scattered areas of fibroglandular density. FINDINGS: Again noted are stable left breast calcifications with an adjacent biopsy marker. No suspic ious mass, calcification, or architectural distortion are identified in either breast to suggest cristian gnancy. There has been no suspicious interval change. IMPRESSION: 1. No mammographic evidence of malignancy. 2. Recommend routine screening mammography in one year. BI-RADS Category 2: Benign finding(s). Reviewed, dictated and finalized at location A. MACHINE OPERATOR
== END ==
PROVIDERS: PCP Obstetrics & Gynecology Gynecology; Visit Provider Obstetrics & Gynecology Gynecology
DX: Z12.31 Encounter for screening mammogram for malignant neoplasm of breast (principal)
CPT/HCPCS: 77063; 77067

== ENCOUNTER 2023-01-28 09:57 | Outpatient (CLI) | payer MEDICARE, SELFPAY ==
[2023-01-28 11:18] LABS: Basophils Absolute Auto 0.1 K/mm3 (0.0-0.1); Eosinophils Absolute Auto 0.3 K/mm3 (0-0.3); Eosinophils Percent Auto 4.7 % (0-4.4); Hematocrit 40.2 % (37.0-47.0); Hemoglobin 12.4 g/dL (12.0-15.0); Immature Granulocyte Absolute 0.01 K/mm3 (0.00-0.031); Immature Granulocyte Percent A 0.2 % (0-0.5); Lymphocytes Absolute Auto 1.93 K/mm3 (0.9-3.2); Lymphocytes Percent Auto 33.4 % (18.3-44.2); Mean Corpuscular HGB Conc 30.8 g/dl (32-36); Mean Corpuscular Hemoglobin 29.1 pg (26-34); Mean Corpuscular Volume 94.4 fl (80-100); Mean Platelet Volume 9.7 fl (7.4-10.4); Monocytes Absolute Auto 0.5 K/mm3 (0.1-0.6); Monocytes Percent Auto 8.5 % (2.6-8.5); Neutrophils Percent Auto 52.2 % (45.5-73.1); Platelet Count Result 309 k/mm3 (150-375); Red Blood Count 4.26 M/mm3 (4.2-5.4); Red Cell Distribution Width 13.9 % (11.5-14.5); White Blood Count 5.8 K/mm3 (4.5-10.0)
[2023-01-28 11:27] LABS: Urine Cotinine NEGATIVE
[2023-01-28 11:27] LABS: INR 0.9; Prothrombin Time 12.5 Seconds (11.1-14.7)
[2023-01-28 11:28] LABS: Partial Thromboplastin Time 24.1 SECONDS (22.3-36.8)
[2023-01-28 11:30] LABS: Albumin Level 4.7 g/dL (3.5-5.1); Anion Gap 8 mmol/L (8-16); Blood Urea Nitrogen 19 mg/dL (7-17); Calcium 10.4 mg/dL (8.4-10.2); Carbon Dioxide 27 mmol/L (22-30); Chloride 107 mmol/L (98-107); Estimated Glomerular Filt Rate > 60; Glucose 104 mg/dL (65-110); Potassium 5.1 mmol/L (3.4-5.0); Sodium 142 mmol/L (137-145)
[2023-01-28 11:33] LABS: Hemoglobin A1C 5.7 % (<5.7)
[2023-01-28 11:36] LABS: Appearance Urine Clear (Clear); Bacteria Urine None Seen /hpf; Bilirubin Urine Negative (Negative); Blood Urine Negative (Negative); Color Urine Yellow (Yellow); Glucose Urine UA Negative (Negative); Ketones Urine Negative (Negative); Leukocyte Esterase Ur 1+ LEU/UL (Negative); Need Manual Microscopic Reviewed; Nitrate Urine Negative (Negative); Non Pathogenic Casts 0-2; Protein Urine Negative (Negative); RBC Urine 0-2 /hpf (0-2); Specific Grav Ur 1.016 (1.001-1.035); Squamous Epithelial Cell Urine None seen /hpf (Few); Urobilinogen Urine 0.2 mg/dL (<2.0); WBC Urine 0-5 /hpf
[2023-01-28 11:39] LABS: Add Urine Microscopic? YES
== END 2023-01-28 09:58 | disposition home or self-care (01) ==
LOC: ANHSURGERY 10:03
PROVIDERS: PCP Family Medicine; Visit Provider Orthopaedic Surgery
DX: Z01.818 Encounter for other preprocedural examination (principal); M17.11 Unilateral primary osteoarthritis, right knee
CPT/HCPCS: 80048; 80307; 81001; 82040; 83036; 85025; 85610; 85730; 87081

== ENCOUNTER 2023-02-11 00:04 | Day surgery (SDC) | payer MEDICARE, SELFPAY ==
--- NOTE | 2023-01-28 09:32 | PC.NURSE ---
PRE-OP INSTRUCTIONS, PLEASE READ CAREFULLY Report to the Outpatient Waiting Room, entrance under the green pavilion located off [facility], at time _1000_ on date _02/11/23_. Planned Procedure Time: _1200_. PACK A SMALL OVERNIGHT BAG AND LEAVE IN THE CAR ALONG WITH YOUR WALKER Time changes happen often and if your time is changed the preop area will call you the afternoon before. - You and your visitor will be asked to self-screen and do not enter if you have any COVID symptoms. - A mask is optional within the hospital at this time. -VISING HOURS 8AM-8PM Patients may have clear liquids (water, carbonated beverages, clear teas, apple juice) until 3 hours prior to surgery (0900 AM) with a maximum of 20 ounces. - No food from midnight until time of surgery Take the following medications with a SIP of water the morning of surgery: _WIXELA INHALER, GABAPENTIN, METHIMAZOLE, & TYLENOL IF NEEDED_ DO NOT STOP ANY OF YOUR OTHER PRESCRIPTION MEDICATIONS PRIOR TO SURGERY ?EXCEPT THE FOLLOWING Medications to discontinue per DR. VILLEDA- _DICLOFENAC 7 DAYS PRIOR TO SURGERY (PER PT), Date to take last dose 02/03/23_ Medications to discontinue per ANESTHESIA - _VITAMINS & SUPPLEMENTS 3 DAYS PRIOR TO SURGERY, Date to take last dose 02/07/23_ Please no make-up, nail palauan, hairspray, perfume, deodorant, or body powder the day of surgery. No jewelry (including any body piercings) or valuables the day of surgery, leave them at home. Please take a shower or bath the night before, or the morning of, surgery with an antibacterial soap. Wear comfortable, loose fitting clothing. Children are encouraged to wear pajamas. - Jewelry must be removed prior to entering the operating room. Rings and piercings that are not removed may be cut off. - The hospital will not accept responsibility for valuables. - Please leave all valuables, including medications, at home the day of surgery. If you are going home after surgery, a licensed tank truck driver must drive you home. - NO public transportation without another adult if you receive anesthesia. - We recommend that an adult stay with you for 24 hours following discharge. - We also recommend that you do not drive, make important decision, drink alcoholic beverages, or take any drugs that were not prescribed by your health care provider for at least 24 hours after your discharge time. Follow any additional instructions given to you from your surgeon. If you or anyone in your household have experienced Covid symptoms in the past week, please notify your surgeon or the nurse liaison at the phone number below for possible testing. Instructions given to _PATIENT_and asked if any additional questions and then verbalized understanding. Patient advised to call surgeon office or pre surgery nurse liaison [phone] if any additional questions.
[2023-01-28 10:08] VITALS: BP 170/76; PULSE 64; RESP 18; TEMP 36.7; O2SAT 100; BMI 34.0
[2023-02-11] VITALS (13 sets, daily range): BP systolic 114–165; BP diastolic 60–125; PULSE 67–82; RESP 10–22; TEMP 35.9–37.2; O2SAT 92–100
--- NOTE | ~2023-02-11 | XR_ITS ---
EXAMINATION: [id number] DATE: 02/11/2023 14:45 INDICATION: Postoperative evaluation following right total knee arthroplasty. TECHNIQUE: Anteroposterior and lateral views of the right knee were obtained. COMPARISON: None. FINDINGS: Right total knee arthroplasty without patellar resurfacing appears well seated and in near anatomic a lignment. No fractures identified. Anterior skin luca and expected postoperative subcutaneous and intra-articular gas. IMPRESSION: 1. Right total knee arthroplasty, negative for postoperative purposes. Reviewed, dictated and finalized at location A. NEHOUSE BRAKEMAN
--- NOTE | 2023-02-11 10:34 | WPDHPUPDATE1 ---
History and Physical Update Update Date/Time: 02/11/23 10:34 History and Physical has been reviewed, including an updated exam of the patient. There are NO changes in the patient's condition. Risks, benefits, and alternatives have been discussed and questions answered. Patient agrees to proceed with procedure.
--- NOTE | 2023-02-11 10:46 | WPDHPUPDATE1 ---
History and Physical Update Update Date/Time: 02/11/23 10:46 History and Physical has been reviewed, including an updated exam of the patient. There are NO changes in the patient's condition. Risks, benefits, and alternatives have been discussed and questions answered. Patient agrees to proceed with procedure.
[2023-02-11] MEDS: TRANEXAMIC ACID 1,000MG/ISO100 1,000 MG/100 ML BAG 200 MG IVPB (10:52)
[2023-02-11] MEDS: LACTATED RINGERS 1,000 ML 30 ML IV CONT ×2 (10:55→14:22)
[2023-02-11] MEDS: ACETAMINOPHEN 500 MG TABLET 1000 MG PO (10:56)
--- NOTE | 2023-02-11 11:13 | WPDANESEPPF ---
Anes - Initial Pre Proc Eval Procedure: Operation Date: 02/11/23 12:00 Proposed Procedures p Right Total Knee Arthroplasty - Ruddy Pressley MD Date/Time: 02/11/23 11:13 Surgeon: Ruddy Pressley MD Pre Op Diagnosis: Rt Knee DJD Patient Data Age: 73 Gender: F Height: 1.6 m Weight: 85.35 kg Last Vital Signs Temp 37.2 C 02/11/23 10:19 Pulse 69 02/11/23 10:19 Resp 18 02/11/23 10:19 BP 114/72 02/11/23 10:19 Pulse Ox 96 02/11/23 10:19 O2 Del Method Room Air 02/11/23 10:19 Allergies Allergy/AdvReac Type Severity Reaction Status Date / Time Sulfa (Sulfonamide Allergy Unknown Itching Verified 02/11/23 11:09 Antibiotics) Home Medications Medication Instructions Recorded Confirmed Type lactobacillus combination no.4 15 15,000 mmu cells PO DAILY 01/27/19 02/11/23 History billion cell capsule (Senior Probiotic) cholecalciferol (vitamin D3) 50 3,000 unit PO DAILY 03/08/20 02/11/23 History mcg (2,000 unit) chewable tablet calcium carbonate 600 mg calcium 600 mg PO DAILY #90 tabs 05/16/22 02/11/23 Rx (1,500 mg) tablet (Calcium) lisinopril 2.5 mg tablet See Rx Instructions .Route 10/21/22 02/11/23 Rx .COMPLEX #90 tabs methimazole 5 mg tablet 5 mg PO DAILY #90 tabs 11/06/22 02/11/23 Rx omeprazole 20 mg capsule,delayed 20 mg PO DAILY #180 caps 11/06/22 02/11/23 Rx release simvastatin 40 mg tablet See Rx Instructions .Route 11/06/22 02/11/23 Rx .COMPLEX #90 tabs gabapentin 300 mg capsule 300 mg PO BID #180 caps 12/28/22 02/11/23 Rx diclofenac sodium 75 mg See Rx Instructions .Route 01/17/23 02/11/23 Rx tablet,delayed release .COMPLEX #180 tabs acetaminophen 500 mg tablet 1,000 mg PO QID PRN Pain 01/28/23 01/28/23 History fluticasone 250 mcg-salmeterol 50 1 inh inhalation BID 01/28/23 02/11/23 History mcg/dose blistr percy for inhalation (Estebanxamy Inhub) Laboratory Tests 02/11/23 10:44 Blood Type Pending Antibody Screen Pending Patient hx anesthesia problems: none Family hx anesthesia problems: none Results Review: All pre-operative results and documents have been reviewed as part of the pre-operative evaluation. [facility] Past Medical History Medical History Arthritis Asthma BMI 30.0-30.9,adult Colitis Dyslipidemia Effusion of knee joint Encounter for medication management Essential hypertension High cholesterol Hypertension Inflammatory arthritis Methotrexate, correction, current use Migraine Mild intermittent asthma with (acute) exacerbation Neck pain Neuropathy Neck. She gets injections in her neck. Paresthesia of bilateral legs Peripheral polyneuropathy Post herpetic neuralgia Pre-op evaluation Primary osteoarthritis, right shoulder (~2014) Psoriasis (~1999) Rheumatoid arthritis Right knee DJD Takotsubo cardiomyopathy Thyroid disease Vasovagal syncope Surgical History Surgical History Cataract extraction status H/O cardiac catheterization H/O shoulder surgery On the right H/O: hysterectomy History of elbow surgery History of mandibular surgery History of right shoulder replacement History of toe surgery History of tonsillectomy Family History Family History Sibling Family history of thyroid disease Asthma Family history of arthritis Family history of type 1 diabetes mellitus Mother Family history of osteoporosis Family history of migraine headaches Family history of cataracts Asthma Other Diabetes mellitus Family history of allergic disorder Family history of congestive heart failure Family history of coronary artery disease Family history of malignant neoplasm of breast in first degree relative Family history of malignant neoplasm of kidney Hypertension Social History Social History (Reviewed 02/11/23 @ 11:13
--- NOTE | 2023-02-11 11:59 | WPDANESPNB ---
Anes - Peripheral Nerve Block Date/Time: 02/11/23 11:59 I have discussed with the patient/family/POA the placement of a peripheral nerve block for post-operative pain management, including associated risks, benefits, complications, and side effects. Alternative methods of post-operative analgesia were detailed. Questions were solicited and answers provided to the satisfaction of the patient/family/POA. Time-Out: A pre-procedural Time-Out was completed immediately before starting the procedure and confirmed: Patient Identification, Site, Procedure, Patient Position and the Availability of Requisite Equipment. Clinical Indications: Acute post-operative pain management requested by the operative surgeon. Nerve Block Insertion Note Anes-nerve block: adductor canal right Patient position: supine Skin prep: chlorhexidine Needle: 22 gauge, stimulating, insulated echogenic needle. Needle length: 50 mm Technique: ultrasound Injectate: bupivacaine 0.5% with epi 5 mcg/ml (30cc no epi) Observations: tolerated well Complications: none Procedure start time:: 1155 Procedure end time:: 115
[2023-02-11] MEDS: ceFAZolin 2 GM/D5W 50 ML 2 GM/50 ML BAG IVPB ×2 (12:11→20:58)
[2023-02-11] MEDS: GENTAMICIN BONE CEMENT REFOBACIN 1 EACH TOPICAL (13:07)
[2023-02-11] MEDS: TRANEXAMIC ACID 1,000 MG/10 ML AMPUL 1000 MG IV PUSH (13:50)
--- NOTE | 2023-02-11 14:25 | W.PM.PROC2 ---
Procedure Note - Detailed Date of Procedure 02/11/23 Pre-op Diagnosis Rt Knee DJD Post-op Diagnosis Same Procedure Performed R TKA Surgeon Ruddy Pressley MD Anesthesia General Description of Procedure THE RIGHT KNEE WAS PREPPED AND DRAPED IN THE STERILE FASHION. A MIDLINE SKIN INCISION WAS MADE. A MEDIAL PARAPATELLAR ARTHROTOMY WAS MADE. THE PATELLA WAS EVERTED. THERE WAS MINIMAL PATELLA DJD. AN INTRAMEDULLARY JESSICA WAS PLACED IN THE FEMUR. A DISTAL FEMORAL CUT WAS MADE IN 5 DEGREES OF VALGUS REMOVING APPROXIMATELY 9 MM OF BONE FROM THE DISTAL FEMUR. THE FEMUR WAS SIZED TO 62.5. A 62.5 FEMORAL CUTTING BLOCK WAS PLACED IN 3 DEGREES OF EXTERNAL ROTATION AND IN ALIGNMENT WITH VIDAL'S LINE AND THE TRANSEPICONDYLAR AXIS. ANTERIOR POSTERIOR AND CHAMFER CUTS WERE MADE. THE CUTS WERE EXCELLENT. NEXT AN INTRAMEDULLARY CUTTING GUIDE WAS PLACED IN THE TIBIA. A TRANS TIBIAL CUT WAS MADE ALONG THE LONG AXIS OF THE TIBIA. APPROXIMATELY 10 MM OF BONE WAS REMOVED FROM THE HIGH SIDE OF THE TIBIA. THE TIBIA WAS THEN PLANED TO A SMOOTH SURFACE. POSTERIOR FEMORAL OSTEOPHYTES WERE REMOVED FROM THE FEMORAL CONDYLES. A 71 TIBIAL TRIAL WAS PLACED IN ALIGNMENT WITH THE 1/3 MEDIAL ASPECT OF THE TIBIAL TUBERCLE. THEN A 62.5 FEMORAL TRIAL COMPONENT WAS PLACED. BOTH HAD EXCELLENT FITS. EVENTUALLY A 10 MM CR POLYETHYLENE TRIAL COMPONENT WAS PLACED. THE KNEE WAS TAKEN THROUGH A RANGE OF MOTION. THE KNEE CAME OUT TO FULL EXTENSION. THERE WAS NO ABNORMAL TILT TO THE PATELLA. THERE WAS GOOD A/P AND VARUS/VALGUS STABILITY. THERE WAS NO EXCESSIVE ROLL BACK WITH FLEXION. THE TRIAL COMPONENTS WERE REMOVED. THEN A 62.5 FEMORAL COMPONENT AND 71 TIBIAL COMPONENT WITH A 10 CR POLYETHYLENE COMPONENT WERE CEMENTED INTO PLACE. ONCE THE CEMENT WAS HARD THE KNEE WAS TAKEN THROUGH A ROM AGAIN AND FOUND TO BE STABLE WITH NO PATELLA TILT NO EXCESSIVE ROLL BACK WITH FLEXION AND GOOD STABILITY WITH COMPLETE AND FULL EXTENSION. THE KNEE WAS IRRIGATED WITH STERILE BETADINE AND WATER FOR ABOUT 3 MINUTES. THE BLEEDERS WERE CAUTERIZED. THE ARTHROTOMY WAS REPAIRED WITH NUMBER 1 VICRYL. THE SUB CUTANEOUS LAYER WITH 2-0 VICRYL AND THE SKIN WITH PREET. THE WOUND WAS WASHED AND A STERILE DRESSING WAS APPLIED. PATIENT WAS EXTUBATED. Estimated Blood Loss -150.0 Pathology None sent Complications No immediate complications Condition Stable Disposition PACU
[2023-02-11] MEDS: fentaNYL CITRATE INJ (*CRX) 100 MCG/2 ML VIAL 25 MCG IV PUSH ×4 (14:38→15:25)
[2023-02-11] MEDS: diphenhydrAMINE HCl INJ 50 MG/ML VIAL 25 MG IV PUSH ×2 (15:37→16:56)
[2023-02-11] MEDS: SENNA/DOCUSATE SODIUM TABLET 2 TAB PO (17:41)
[2023-02-11] MEDS: KETOROLAC 15 MG/ML VIAL (*BKC) IV PUSH (17:41)
[2023-02-11] MEDS: SIMVASTATIN 20 MG TABLET 40 MG PO (17:42)
[2023-02-11] MEDS: GABAPENTIN 300 MG CAPSULE PO (17:42)
[2023-02-11] MEDS: lisinopriL 2.5 MG TABLET BY MOUTH (17:42)
--- NOTE | 2023-02-11 18:47 | ADMGEN ---
This patient, Alee Carcamo, was admitted to [facility] Surg Room 323-02 at 1615 from PACU per yenny. Patient/family oriented to hospital policies and general routines including ID bracelet, bed and alarms, visiting hours, pain management, procedures, bathroom and other care routines, personal items, smoking policy, room service/diet, and visiting hours. Information on how to activate the Rapid Response Team has been discussed. Patient/Family are encouraged to report perceived risks to care and to ask questions if they do not understand what they are told or what they should do.
[2023-02-11] MEDS: ASPIRIN 325 MG ENTERIC TABLET PO (20:57)
[2023-02-11] MEDS: oxyCODONE/ACETAMINOPHEN (*CRX) 5-325 MG TABLET 1 TABLET PO (20:57)
[2023-02-11] MEDS: hydrOXYzine pamoate 25 MG CAPSULE PO (20:57)
[2023-02-12] MEDS: KETOROLAC 15 MG/ML VIAL (*BKC) IV PUSH ×3 (00:06→10:59)
[2023-02-12 01:22] VITALS: BP 104/48; PULSE 67; RESP 13; TEMP 36.3; O2SAT 96
[2023-02-12] MEDS: ceFAZolin 2 GM/D5W 50 ML 2 GM/50 ML BAG IVPB ×2 (05:07→11:00)
[2023-02-12 05:22] VITALS: BP 144/56; PULSE 72; RESP 12; TEMP 36.4; O2SAT 96; BMI 33.2
[2023-02-12 06:36] LABS: Basophils Percent Auto 0.4 % (0.2-1.2); Eosinophils Percent Auto 0.3 % (0-4.4); Hematocrit 35.4 % (37.0-47.0); Hemoglobin 10.7 g/dL (12.0-15.0); Immature Granulocyte Absolute 0.03 K/mm3 (0.00-0.031); Immature Granulocyte Percent A 0.3 % (0-0.5); Lymphocytes Absolute Auto 1.63 K/mm3 (0.9-3.2); Lymphocytes Percent Auto 15.8 % (18.3-44.2); Mean Corpuscular HGB Conc 30.2 g/dl (32-36); Mean Corpuscular Hemoglobin 28.8 pg (26-34); Mean Corpuscular Volume 95.4 fl (80-100); Mean Platelet Volume 9.5 fl (7.4-10.4); Monocytes Percent Auto 9.9 % (2.6-8.5); Neutrophils Absolute Auto 7.6 K/mm3 (1.3-6.7); Neutrophils Percent Auto 73.3 % (45.5-73.1); Platelet Count Result 262 k/mm3 (150-375); Red Blood Count 3.71 M/mm3 (4.2-5.4); Red Cell Distribution Width 13.8 % (11.5-14.5); White Blood Count 10.3 K/mm3 (4.5-10.0)
[2023-02-12 07:00] LABS: Anion Gap 8 mmol/L (8-16); Blood Urea Nitrogen 19 mg/dL (7-17); Carbon Dioxide 25 mmol/L (22-30); Chloride 105 mmol/L (98-107); Estimated CRCL calculation 51 ml/min; Estimated Glomerular Filt Rate > 60; Glucose 110 mg/dL (65-110); Sodium 138 mmol/L (137-145)
[2023-02-12] MEDS: polyethylene glycoL 3350 17 GM POWD.PACK PO (08:36)
[2023-02-12] MEDS: methiMAzole 5 MG TAB PO (08:39)
[2023-02-12] MEDS: SENNA/DOCUSATE SODIUM TABLET 2 TAB PO (08:39)
[2023-02-12] MEDS: GABAPENTIN 300 MG CAPSULE PO (08:39)
[2023-02-12] MEDS: ASPIRIN 325 MG ENTERIC TABLET PO (08:39)
[2023-02-12] MEDS: PANTOPRAZOLE 40 MG TABLET PO (08:39)
[2023-02-12] MEDS: CHOLECALCIFEROL 1,000 UNITS TABLET 3000 UNITS PO (08:40)
[2023-02-12 09:53] VITALS: BP 133/56; PULSE 60; RESP 14; TEMP 36.7; O2SAT 98
[2023-02-12 12:00] VITALS: BP 121/58; PULSE 67; RESP 14; TEMP 37.3; O2SAT 97
--- NOTE | 2023-02-12 12:38 | PM.PNORT ---
Progress Note: A&P Assessment and Plan (1) Right knee DJD: Qualifiers: Osteoarthritis type: primary Qualified Code(s): M17.11 - Unilateral primary osteoarthritis, right knee Code(s): M17.11 - Unilateral primary osteoarthritis, right knee Status: Acute Assessment and Plan: POD 1 DOING WELL. GODD PROGRESS WITH PT. OK TO DC HOME F/U IN 6 WEEKS. Subjective Subjective Date/Time Seen: 02/12/23 12:38 Interval history: POD 1 DOING WELL. GOOD PROGRESS WITH PT. NO CALF PAIN Exam Extrem: Other: VSS AFEBRILE DRESSING DRY NV INTACT CALF SOFT NON TENDER NEG HOMANS SIGN Objective Data Vital Signs Vital Signs: Vital Signs - 24 hr 02/11/23 14:22 02/11/23 14:35 02/11/23 14:50 Temperature 36.3 C L Pulse Rate 73 71 75 Respiratory Rate 10 L 18 22 H Blood Pressure 136/75 151/80 H 150/84 H Pulse Oximetry 97 100 92 Oxygen Delivery Simple Face Mask Simple Face Mask Room Air Oxygen Flow Rate 8 8 02/11/23 15:05 02/11/23 15:20 02/11/23 15:35 Temperature Pulse Rate 77 72 71 Respiratory Rate 22 H 18 16 Blood Pressure 140/90 152/71 H 129/60 Pulse Oximetry 99 100 100 Oxygen Delivery Nasal Cannula Nasal Cannula Nasal Cannula Oxygen Flow Rate 2 2 2 02/11/23 15:50 02/11/23 16:05 02/11/23 16:08 Temperature 35.9 C L Pulse Rate 67 70 70 Respiratory Rate 12 16 17 Blood Pressure 165/79 H 164/92 H 153/125 H Pulse Oximetry 96 100 100 Oxygen Delivery Nasal Cannula Nasal Cannula Oxygen Flow Rate 2 2 02/11/23 17:53 02/11/23 21:47 02/11/23 20:00 Temperature 36.6 C 36.8 C Pulse Rate 82 75 Respiratory Rate 17 13 Blood Pressure 152/67 H 140/64 Pulse Oximetry 100 92 92 Oxygen Delivery Room Air Oxygen Flow Rate 02/12/23 01:22 02/12/23 05:22 02/12/23 09:05 Temperature 36.3 C L 36.4 C L Pulse Rate 67 72 Respiratory Rate 13 12 Blood Pressure 104/48 L 144/56 H Pulse Oximetry 96 96 Oxygen Delivery Room Air Oxygen Flow Rate 02/12/23 09:53 02/12/23 12:00 Temperature 36.7 C 37.3 C Pulse Rate 60 67 Respiratory Rate 14 14 Blood Pressure 133/56 L 121/58 L Pulse Oximetry 98 97 Oxygen Delivery Oxygen Flow Rate Intake/Output Intake/Output: Intake & Output 02/09/23 02/10/23 02/11/23 02/12/23 23:59 23:59 23:59 23:59 Intake Total 860 970 Balance 860 970 Meds/Results Medications: Active Medications Generic Name Dose Route Start Last Admin Trade Name Freq PRN Reason Stop Dose Admin Aspirin 325 mg 02/11/23 21:00 02/12/23 08:39 Aspirin 325 Mg Enteric Tablet PO 325 mg Q12HR ALISON Administration Diazepam 5 mg 02/11/23 16:08 Diazepam (*Crx) 5 Mg Tablet PO Q8H PRN Spasms Diphenhydramine HCl 25 mg 02/11/23 16:08 02/11/23 16:56 Diphenhydramine Hcl Inj 50 Mg/Ml Vial IV PUSH 25 mg Q6H PRN Administration Itching Gabapentin 300 mg 02/11/23 17:00 02/12/23 08:39 Gabapentin 300 Mg Capsule PO 300 mg BID ALISON Administration Hydroxyzine Pamoate 25 mg 02/11/23 14:39 02/11/23 20:57 Hydroxyzine Pamoate 25 Mg Capsule PO 25 mg Q4H PRN Administration Itching Ketorolac Tromethamine 15 mg 02/11/23 18:00 02/12/23 10:59 Ketorolac 15 Mg/Ml Vial (*Bkc) IV PUSH 02/12/23 18:01 15 mg Q6HR ALISON Administration Lisinopril 2.5 mg 02/11/23 16:08 02/12/23 08:57 Lisinopril 2.5 Mg Tablet BY MOUTH Not Given DAILY ALISON Methimazole 5 mg 02/12/23 09:00 02/12/23 08:39 Methimazole 5 Mg Tab PO 5 mg DAILY ALISON Administration Naloxone HCl 0.1 mg 02/11/23 16:08 Naloxone Hcl 0.4 Mg/Ml Vial IV PUSH Q2M PRN Opiate Reversal Ondansetron HCl 4 mg 02/11/23 16:08 Ondansetron Inj 4 Mg/2 Ml Vial IV PUSH Q4H PRN Nausea And Vomiting Oxycodone/Acetaminophen 1 tablet 02/11/23 16:08 02/11/23 20:57 Oxycodone/Acetaminophen (*Crx) 5-325 Mg Tablet PO 1 tablet Q4H PRN Administration Pain Rated 4-6 Oxycodone/Acetaminophen 2 tablet 02/11/23 16:08
--- NOTE | 2023-02-12 12:41 | PM.DS ---
DS: Admitting Diagnosis Discharge Date 02/12/23 Admitting Diagnosis RIGHT KNEE DJD DS: Discharge Diagnosis Discharge Diagnosis (1) Right knee DJD: Qualifiers: Osteoarthritis type: primary Qualified Code(s): M17.11 - Unilateral primary osteoarthritis, right knee Code(s): M17.11 - Unilateral primary osteoarthritis, right knee Status: Acute DS: Summary Hospital Course Reason for hospitalization: RIGHT TKA Hospital Course: PATIENT WAS ADMITTED S/P TOTAL [] ARTHROPLASTY FOR POSTOPERATIVE MEDICAL MANAGEMENT, PAIN CONTROL AND MOBILIZATION WITH PHYSICAL AND OCCUPATIONAL THERAPY. THE PATIENT PROGRESSED WELL WITH PT/OT. LABS AND VITALS REMAINED STABLE AND PAIN WELL CONTROLLED. THE PATIENT HAS BEEN CLEARED TO BE DISCHARGED []. FOLLOW UP APPOINTMENT SCHEDULED. DISCHARGE INSTRUCTIONS DISCUSSED AT LENGTH WITH THE PATIENT. MEDICATIONS REVIEWED. Status at Discharge Cognitive/behavioral status at discharge: STABLE Time Spent with Patient Time attestation: Total time spent providing and/or coordinating discharge services: DS: Data Data Completed and Pending Labs on day of discharge: Labs from last 24 hours 02/12/23 06:28 WBC 10.3 H RBC 3.71 L Hgb 10.7 L Hct 35.4 L MCV 95.4 MCH 28.8 MCHC 30.2 L RDW 13.8 Plt Count 262 MPV 9.5 Immature Gran % (Auto) 0.3 Neut % (Auto) 73.3 H Lymph % (Auto) 15.8 L [place] % (Auto) 9.9 H Eos % (Auto) 0.3 Baso % (Auto) 0.4 Lymph # (Auto) 1.63 [place] # (Auto) 1.0 H Eos # (Auto) 0.0 Baso # (Auto) 0.0 Abs Immat Gran (auto) 0.03 Absolute Neuts (auto) 7.6 H Absolute Nucleated RBC 0.0 Nucleated RBC % 0.0 Sodium 138 Potassium 4.0 Chloride 105 Carbon Dioxide 25 Anion Gap 8 BUN 19 H Creatinine 0.90 Estim Creat Clear Calc 51 Estimated GFR > 60 Glucose 110 Calcium 9.0 Discharge Plan Discharge Patient Disposition: Home Health Service Discharge Instructions: Per Care Coordination: [facility] ([phone]) to call to schedule initial visit for RN/PT/OT RN please fax discharge instructions to [phone] Patient Instructions: Antibiotic Form Stand Alone Forms: General Discharge Information Follow-up/Referrals: Ruddy Pressley MD [Physician] - 3 Weeks Discharge Medications: New oxycodone-acetaminophen [Percocet] 5-325 mg tablet 1 tablet PO Q6H PRN (Reason: pain) Qty: 30 0RF hydroxyzine pamoate 50 mg capsule 50 mg PO BID PRN (Reason: itching) Qty: 30 0RF aspirin 325 mg tablet 325 mg PO BID Qty: 42 0RF Continued omeprazole 20 mg capsule,delayed release(DR/EC) 20 mg PO DAILY Qty: 180 2RF Senior Probiotic 15 billion cell capsule 15,000 mmu cells PO DAILY cholecalciferol (vitamin D3) 50 mcg (2,000 unit) tablet,chewable 3,000 unit PO DAILY Rx Instructions: pt takes 3000 calcium carbonate [Calcium 600] 600 mg calcium (1,500 mg) tablet 600 mg PO DAILY Qty: 90 1RF acetaminophen 500 mg Tablet 1,000 mg PO QID PRN (Reason: Pain) fluticasone propion-salmeterol [Wixela Inhub] 250-50 mcg/dose blister with device 1 inh inhalation BID lisinopril 2.5 mg tablet See Rx Instructions .ROUTE .COMPLEX Qty: 90 2RF Dose Instruction: TAKE 1 TABLET DAILY Rx Instructions: TAKE 1 TABLET DAILY simvastatin 40 mg tablet See Rx Instructions .ROUTE .COMPLEX Qty: 90 2RF Dose Instruction: TAKE 1 TABLET DAILY Rx Instructions: TAKE 1 TABLET DAILY methimazole 5 mg tablet 5 mg PO DAILY Qty: 90 1RF gabapentin 300 mg capsule 300 mg PO BID Qty: 180 1RF Discontinued diclofenac sodium 75 mg tablet,delayed release (DR/EC) See Rx Instructions .ROUTE .COMPLEX Qty: 180 0RF Dose Instruction: TAKE 1 TABLET TWICE A DAY NEEDED FOR ARTHRITIS Rx Instructions: TAKE 1 TABLET TWICE A DAY NEEDED FOR ARTHRITIS
== END 2023-02-12 14:30 | disposition home health service (06) ==
LOC: ANHSURGERY 10:02 → ANH3MEDSUR 16:37
PROVIDERS: PCP Family Medicine; Visit Provider Orthopaedic Surgery
PROC: (CPT 27447; principal; 2023-02-11 12:00)
DX: M17.11 Unilateral primary osteoarthritis, right knee (principal); I10 Essential (primary) hypertension; J45.909 Unspecified asthma, uncomplicated; E78.00 Pure hypercholesterolemia, unspecified; E07.9 Disorder of thyroid, unspecified; E66.9 Obesity, unspecified; G89.18 Other acute postprocedural pain; Z68.33 Body mass index [BMI] 33.0-33.9, adult; Z79.51 Long term (current) use of inhaled steroids; Z79.82 Long term (current) use of aspirin; Z98.61 Coronary angioplasty status; Z87.891 Personal history of nicotine dependence; Z80.3 Family history of malignant neoplasm of breast; Z80.51 Family history of malignant neoplasm of kidney
CPT/HCPCS: 64447; 27447; 36415; 73560; 80048; 85025; 86850; 86900; 86901; 97110; 97161; 97165; 97535; A9270; C1713; C1776; J0171; J0690; J1100; J1170; J1200; J1596; J1885; J2250; J2270; J2405; J2704; J2795; J3010; J3370; J7120

== ENCOUNTER → 2023-04-14 10:16 | Outpatient (CLI) | payer MEDICARE, SELFPAY ==
--- NOTE | ~2023-04-14 | DEXA_ITS ---
Bone Density Report Name: WILL MALIN Age: 73 Sex: Female Ethnicity: White Date of : 1950 Indication: postmenopausal; screening for osteoporosis; height loss; asthma or emphysema; hysterectomy; Referring Provider: Soledad Brizuela Study: Bone densitometry was performed. Exam Date: April 14, 2023 Accession number: [id number] There is hypertrophic degenerative change of the lumbar spine, which results in higher than expected spine bone mineral density measurements. These spine BMD and T score and Z score measurements are not reflective of the patient's true general bone mineral density. Bone Density: Region BMD T-score Z-score Classification AP Spine (L1, L3, L4) 1.333 2.5 4.8 Normal Femoral Neck (Left) 0.680 -1.5 0.4 Osteopenia Total Hip (Left) 0.940 0.0 1.6 Normal Femoral Neck (Right) 0.677 -1.6 0.4 Osteopenia Total Hip (Right) 0.889 -0.4 1.2 Normal Total Hip Mean 0.915 -0.2 1.4 Normal World Health Organization criteria for BMD impression classify patients as: Normal (T-score at or above -1.0), Osteopenia (T-score between -1.0 and -2.5), or Osteoporosis (T-score at or below -2.5). 10-year Fracture Risk(1): Major Osteoporotic Fracture 10% Hip Fracture 1.6% Reported Risk Factors: [place] (), Neck BMD=0.677, BMI=32.4 (1) FRAX(R) Version 3.08. Fracture probability calculated for an untreated patient. Fracture probability may be lower if the patient has received treatment. Previous Exams: Region Exam Age BMD T-score BMD Change BMD Change Date g/cm2 vs Baseline vs Previous AP Spine(L1, L3, L4) 04/14/2023 73 1.333 2.5 0.167 0.018 10/24/2020 70 1.315 2.4 0.149* 0.018 07/08/2017 67 1.297 2.2 0.131 -0.099* 06/02/2015 65 1.396 3.1 0.230 0.145* 04/17/2012 62 1.251 1.8 0.085 0.125* 10/07/2008 58 1.126 0.7 -0.040 -0.028* 09/24/2006 56 1.155 0.9 -0.012 -0.012 02/20/2004 54 1.166 1.0 Total Hip(Left) 04/14/2023 73 0.940 0.0 0.041 0.023 10/24/2020 70 0.917 -0.2 0.018 -0.001 07/08/2017 67 0.917 -0.2 0.019 0.057* 06/02/2015 65 0.860 -0.7 -0.039 0.045* 04/17/2012 62 0.815 -1.0 -0.084 -0.092* 10/07/2008 58 0.907 -0.3 0.008 0.026 09/24/2006 56 0.881 -0.5 -0.018 -0.018 02/20/2004 54 0.899 -0.4 Total Hip(Right) 04/14/2023 73 0.889 -0.4 -0.016 0.007 10/24/2020 70 0.882 -0.5 -0.024 0.0
== END ==
PROVIDERS: PCP Family Medicine; Referring Provider Obstetrics & Gynecology Gynecology; Visit Provider Internal Medicine Endocrinology, Diabetes & Metabolism
DX: Z78.0 Asymptomatic menopausal state (principal); M85.80 Other specified disorders of bone density and structure, unspecified site; M85.852 Other specified disorders of bone density and structure, left thigh; M85.851 Other specified disorders of bone density and structure, right thigh
CPT/HCPCS: 77080

== ENCOUNTER 2024-03-11 13:36 | Outpatient (CLI) | payer MEDICARE, SELFPAY ==
--- NOTE | ~2024-03-11 | MM_ITS ---
EXAMINATION: MM screening [place] BI w louise HISTORY: Screening TECHNIQUE: Craniocaudal and mediolateral oblique 3-D tomosynthesis images were obtained and synthetic 2-D images were generated. CAD analysis was submitted and interpreted. COMPARISON: Comparison to multiple prior studies sequentially, with oldest reviewed study dated 07/08. BREAST PARENCHYMAL COMPOSITION: Not dense: There are scattered areas of fibroglandular density. FINDINGS: Breast asymmetries and calcifications are stable compared with prior studies. There is no e vidence of suspicious mass, calcification, or architectural distortion to suggest malignancy in eithe r breast. There has been no suspicious interval change. IMPRESSION: 1. No mammographic evidence of malignancy. 2. Recommend routine screening mammography in one year. BI-RADS Category 2: Benign finding(s). Reviewed, dictated and finalized at location A. VAULT ATTENDANT
== END 2024-03-11 13:37 | disposition home or self-care (01) ==
LOC: MICIMG 13:37
PROVIDERS: PCP Family Medicine; Visit Provider Nurse Practitioner
DX: Z12.31 Encounter for screening mammogram for malignant neoplasm of breast (principal)
CPT/HCPCS: 77063; 77067